=== PATIENT | female | born 1980 | race African-American/Black ===

== ENCOUNTER 2017-10-23 22:12 | Emergency (ER) | payer SELFPAY, OTHER ==
[2017-10-23] MEDS: diphenhydrAMINE HCL 25 MG CAPSULE PO (22:53)
[2017-10-23] MEDS: predniSONE 20 MG TABLET PO (22:53)
[2017-10-23] MEDS: HYDROcodone/APAP 5/325MG 1 TAB TABLET PO (22:53)
[2017-10-23] MEDS: METOCLOPRAMIDE 10 MG TABLET. PO (22:53)
== END 2017-10-23 23:43 | disposition home or self-care (01) ==
LOC: ER 22:12
DX: G43.909 Migraine, unspecified, not intractable, without status migrainosus (principal)
CPT/HCPCS: 70450; 99284-25; J7512; J8597; Q0163

== ENCOUNTER 2018-08-19 18:44 | Emergency (ER) | payer OTHER ==
[~2018-08-19] VITALS: Ht 152.4 cm; Wt 49.9 kg
[~2018-08-19 18:44] MED LIST: TRAM50TA PO
[2018-08-19 19:49] LABS: BILIRUBIN,URINE NEGATIVE (NEG); CLARITY,URINE CLEAR; COLOR,URINE YELLOW; NITRITE,URINE NEGATIVE (NEG); PROTEIN,URINE NEGATIVE (NEG-TRACE); UROBILINOGEN,URINE 0.2 mg/dL (0.2 mg/dL)
[2018-08-19 19:55] LABS: U PREG PATIENT NEGATIVE (NEG)
[2018-08-19 20:08] LABS: BACTERIA,URINE 0 /HPF (0-FEW); RBC,URINE 0 /HPF (0-2); SQUAMOUS EPITHELIAL CELL,UR FEW /LPF; WBC,URINE OCC /HPF (0-4)
[2018-08-19] MEDS ORDERED: IPRATRPIUM/ALBUTEROL 0.5/2.5MG 3 ML NEBU. NEB ONE (20:15)
[2018-08-19] MEDS ORDERED: predniSONE 20 MG TABLET PO ONE (20:15)
[2018-08-19 20:46] LABS: INFLUENZA A PATIENT NEGATIVE (NEGATIVE); INFLUENZA B PATIENT NEGATIVE (NEGATIVE)
[2018-08-19] MEDS ORDERED: AZIT250T6 PO (21:13)
[2018-08-19] MEDS ORDERED: PRED50TA PO (21:13)
--- NOTE | 2018-08-19 21:13 | PHYS DOC ---
Past Medical History Past Medical History: Migraines Past Surgical History: Tubal ligation Alcohol Use: None Drug Use: None Adult General Chief Complaint Chief Complaint: SHORTNESS OF BREATH HPI HPI Patient is a 37 year old female who presents with mid chest pain, shortness of air, cough, nausea, cough with production of yellow brown mucus since . Patient states she does smoke. Her heart rate is 80, 21 respirations and 99% on room air. Patient is afebrile. Patient denies abdominal pain or urinary symptoms. Patient denies nausea, vomiting, diarrhea. Patient states she has no medical history no surgical history takes no medications daily. She has no known drug allergies. Review of Systems Review of Systems Constitutional: Fever or chills [] Eyes: Denies change in visual acuity, redness, or eye pain [] HENT: Denies nasal congestion or sore throat [] Respiratory: Cough and Shortness of breath [] Cardiovascular: Mid chest pain GI: Denies abdominal pain. Nausea. Denies vomiting, bloody stools or diarrhea [] : Denies dysuria or hematuria [] Musculoskeletal: Denies back pain or joint pain [] Integument: Denies rash or skin lesions [] Neurologic: Denies headache, focal weakness or sensory changes [] Endocrine: Denies polyuria or polydipsia [] All other systems were reviewed and found to be within normal limits, except as documented in this note. Current Medications Current Medications Current Medications Medications (Trade) Dose Ordered Sig/Maged Start Time Stop Time Status Last Admin Dose Admin Albuterol/ Ipratropium (Duoneb) 3 ml 1X ONCE 08/19/18 20:15 08/19/18 20:16 DC 08/19/18 19:45 3 ML Prednisone (Prednisone) 50 mg 1X ONCE 08/19/18 20:15 08/19/18 20:16 DC 08/19/18 20:28 50 MG Allergies Allergies Allergies Coded Allergies Type Severity Reaction Last Updated Verified No Known Drug Allergies 10/23/17 No Physical Exam Physical Exam Constitutional: Well developed, well nourished, no acute distress, non-toxic appearance. [] HENT: Normocephalic, atraumatic, bilateral external ears normal, oropharynx moist, no oral exudates, nose normal. [] Eyes: PERRLA, EOMI, conjunctiva normal, no discharge. [] Neck: Normal range of motion, no tenderness, supple, no stridor. [] Cardiovascular:Heart rate regular rhythm, no murmur [] Lungs & Thorax: Bilateral upper breath sounds clear to auscultation, lower breath sounds diminished.[] Abdomen: Bowel sounds normal, soft, no tenderness, no masses, no pulsatile masses. [] Skin: Warm, dry, no erythema, no rash. [] Back: No tenderness, no CVA tenderness. [] Extremities: No tenderness, no cyanosis, no clubbing, ROM intact, no edema. [] Neurologic: Alert and oriented X 3, normal motor function, normal sensory function, no focal deficits noted. [] Psychologic: Affect normal, judgement normal, mood normal. [] Current Patient Data Vital Signs Vital Signs Date Time Temp Pulse Resp B/P (MAP) Pulse Ox O2 Delivery O2 Flow Rate FiO2 08/19/18 21:47 82 16 119/57 (77) 98 Room Air 08/19/18 19:25 98.0 98.0 Lab Values Laboratory Tests Test 08/19/18 19:25 08/19/18 20:21 Urine Collection Type Void Urine Color Yellow Urine Clarity Clear Urine pH 6.0 Urine Specific [place] 1.020 Urine Protein Negative mg/dL (NEG-TRACE) Urine Glucose (UA) Negative mg/dL (NEG) Urine Ketones (Stick) 15 mg/dL (NEG) Urine Blood Negative (NEG) Urine Nitrite Negative (NEG) Urine Bilirubin Negative (NEG) Urine Urobilinogen Dipstick 0.2 mg/dL (0.2 mg/dL) Urine Leukocyte Esterase Trace (NEG) Urine RBC 0 /HPF (0-2) Urine WBC Occ /HPF (0-4) Urine Squamous Epithelial Cells Few /LPF Urine Bacteria 0 /HPF (0-FEW) Urine Mucus Marked /LPF Urine Test Negative (NEG) Influenza Type A Antigen Negative (NEGATIVE) Influenza Type B Antigen Negative (NEGATIVE) EKG EKG [] Radiology/Procedures Radiology/Procedures CHEST XRAY Impressions: COMMUNITY ACQUIRED PNEUMONIA Course & Med Decision Making Course & Med Decision Making Patient is a 37 year old female who presents with mid chest pain, shortness of air, cough, nausea, cough with production of yellow brown mucus since . Patient states she does smoke. Her heart rate is 80, 21 respirations and 99% on room air. Patient is afebrile. Patient denies abdominal pain or urinary symptoms. Patient denies nausea, vomiting, diarrhea. Patient states she has no medical history no surgical history takes no medications daily. She has no known drug allergies. Bilateral lung lobes are clear to auscultation but lower lung lobes are diminished. Heart rate regular without murmur. Abdomen is soft and nontender. Patient speaks in full clear sentences. She denies any numbness or tingling. She has no known drug allergies. Chest x-ray shows clearing acquired pneumonia. Flu negative. Patient was given a breathing treatment and prednisone in the ED. Patient is sent home with azithromycin and prednisone. Patient's follow-up with her primary care provider. [] Dragon Disclaimer Dragon Disclaimer This electronic medical record was generated, in whole or in part, using a voice recognition dictation system. Departure Departure Impression: Primary Impression: Community acquired pneumonia Disposition: HOME, SELF-CARE Condition: STABLE Referrals: NO PCP (PCP) Patient Instructions: Pneumonia, Adult Additional Instructions: FOLLOW UP WITH PRIMARY CARE. TAKE MEDICATIONS PRESCRIBED. Scripts Prednisone (PREDNISONE) 50 Mg Tablet 1 TAB PO DAILY, #4 TAB Prov: MIKKI GOODMAN CHILD DEVELOPMENT ASSISTANT 08/19/18 Azithromycin (AZITHROMYCIN TABLET) 250 Mg Tablet 1 PKG PO UD, #6 TAB Prov: MIKKI GOODMAN CHILD DEVELOPMENT ASSISTANT 08/19/18 Problem Qualifiers Primary Impression: Community acquired pneumonia Laterality: unspecified laterality Qualified Codes: J18.9 - Pneumonia, unspecified organism MIKKI GOODMAN CHILD DEVELOPMENT ASSISTANT Aug 19, 2018 21:13
[2018-08-19 21:47] VITALS: BP 119/57
--- NOTE | 2018-08-19 23:31 | RAD ---
Indication:COUGH, NAUSEA X5 DAYS. RECENT CHEST PAIN SINCE TODAY TECHNIQUE:PA and lateral views of the chest COMPARISON: None FINDINGS: Heart is normal in size. Lungs are hyperinflated but clear of focal consolidation. No pneumothorax or pleural effusion. Stable calcified granuloma in the left lower lobe. Visualized bony thorax within normal limits. IMPRESSION: No acute pulmonary process. Electronically signed by: Justin Stafford DO (08/19/2018 11:28 PM) [facility]
--- NOTE | 2018-08-20 07:23 | EKG ---
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
== END 2018-08-19 21:53 | disposition home or self-care (01) ==
LOC: ER 18:44
DX: J18.9 Pneumonia, unspecified organism (principal)
CPT/HCPCS: 71046; 81001; 81025; 87086; 87804; 93005; 94640; 99285; J7512; J7620

== ENCOUNTER 2020-05-25 11:19 | Emergency (ER) | payer OTHER ==
[~2020-05-25] VITALS: Ht 152.4 cm; Wt 47.0 kg
[~2020-05-25 11:19] MED LIST changes: +AZIT250T6 PO; +PRED50TA PO
[2020-05-25] MEDS ORDERED: KETOROLAC 15 MG/ML VIAL. IVP ONE (12:30)
[2020-05-25] MEDS ORDERED: METOCLOPRAMIDE HCL 10 MG/2 ML VIAL. IVP ONE (12:30)
[2020-05-25] MEDS ORDERED: diphenhydrAMINE 50 MG/ML VIAL IVP ONE (12:30)
--- NOTE | 2020-05-25 12:39 | PHYS DOC ---
Past Medical History Past Medical History: Migraines Past Surgical History: Tubal ligation Smoking Status: Current Every Day Smoker Alcohol Use: None Drug Use: None General Adult EDM: Chief Complaint: HEADACHE HPI: HPI: Patient is a 39 year old female with a history of headaches presents with a 3- day history of her typical headache pattern. Pain is frontal severe in nature worse with light worse with noise patient has nausea no vomiting or diarrhea. Pain is throbbing feels like prior headaches. Patient denies fever, cough, vomiting or respiratory symptoms. Review of Systems: Review of Systems: Constitutional: Denies fever or chills. [] Eyes: Denies change in visual acuity. [] HENT: Denies nasal congestion or sore throat. [] Respiratory: Denies cough or shortness of breath. [] Cardiovascular: Denies chest pain or edema. [] GI: Denies abdominal pain, nausea, vomiting, bloody stools or diarrhea. [] : Denies dysuria. [] Musculoskeletal: Denies back pain or joint pain. [] Integument: Denies rash. [] Neurologic: Complains of headache but no focal weakness or sensory changes. [] Endocrine: Denies polyuria or polydipsia. [] Lymphatic: Denies swollen glands. [] Psychiatric: Denies depression or anxiety. [] Heart Score: Risk Factors: Risk Factors: DM, Current or recent (<one month) smoker, HTN, HLP, family history of CAD, obesity. Risk Scores: Score 0 - 3: 2.5% MACE over next 6 weeks - Discharge Home Score 4 - 6: 20.3% MACE over next 6 weeks - Admit for Clinical Observation Score 7 - 10: 72.7% MACE over next 6 weeks - Early Invasive Strategies Current Medications: Current Medications Medications (Trade) Dose Ordered Sig/Maged Start Time Stop Time Status Last Admin Dose Admin Diphenhydramine HCl (Benadryl) 25 mg 1X ONCE 05/25/20 12:30 05/25/20 12:31 DC Ketorolac Tromethamine (Toradol 15mg Vial) 15 mg 1X ONCE 05/25/20 12:30 05/25/20 12:31 DC Lorazepam (Ativan Inj) 1 mg 1X ONCE 05/25/20 12:30 05/25/20 12:31 DC Metoclopramide HCl (Reglan Vial) 10 mg 1X ONCE 05/25/20 12:30 05/25/20 12:31 DC Allergies: Allergies: Allergies Coded Allergies Type Severity Reaction Last Updated Verified No Known Drug Allergies 10/23/17 No Physical Exam: PE: Constitutional: Well developed, well nourished, no acute distress, non-toxic appearance. HENT: No trismus, external ears normal Eyes: Conjunctiva clear, EOMI Neck: Normal range of motion, no tenderness, supple, no stridor. No meningeal signs Cardiovascular: Regular rate/rhythm, peripheral pulse intact, BILINGUAL NANNY intact Lungs & Thorax: No respiratory distress Abdomen: No distension Skin: Diffuse: Intact, no rash Back: Full ROM Extremities: Normal inspection, no edema Neurologic: Alert and oriented X 3, normal motor function, , no focal deficits noted. Psychologic: Affect normal, judgement normal, mood normal. Current Patient Data: Labs: Laboratory Tests Test 05/25/20 12:13 Bedside Urine HCG, Qualitative Hcg negative Current Medications Medications (Trade) Dose Ordered Sig/Maged Route PRN Reason Start Time Stop Time Status Last Admin Dose Admin Metoclopramide HCl (Reglan Vial) 10 mg 1X ONCE IVP 05/25/20 12:30 05/25/20 12:31 DC 05/25/20 13:45 Ketorolac Tromethamine (Toradol 15mg Vial) 15 mg 1X ONCE IVP 05/25/20 12:30 05/25/20 12:31 DC 05/25/20 13:47 Lorazepam (Ativan Inj) 1 mg 1X ONCE IVP 05/25/20 12:30 05/25/20 12:31 DC 05/25/20 13:49 Diphenhydramine HCl (Benadryl) 25 mg 1X ONCE IVP 05/25/20 12:30 05/25/20 12:31 DC 05/25/20 13:48 Dexamethasone Sodium Phosphate (Decadron) 10 mg 1X ONCE IVP 05/25/20 14:45 05/25/20 14:46 DC 05/25/20 14:58 Laboratory Tests Test 05/25/20 12:13 POC Urine HCG, Qualitative Hcg negative (Negative) Vital Signs: Vital Signs Date Time Temp Pulse Resp B/P (MAP) Pulse Ox O2 Delivery O2 Flow Rate FiO2 05/25/20 12:02 98.7 80 16 128/59 (82) 100 Room Air 98.7 Vital Signs Date Time Temp Pulse Resp B/P (MAP) Pulse Ox O2 Delivery O2 Flow Rate FiO2 05/25/20 14:55 76 16 100 05/25/20 12:02 98.7 128/59 (82) Room Air 98.7 EKG: EKG: [] Radiology/Procedures: Radiology/Procedures: [] Course & Med Decision Making: Course & Med Decision Making Pertinent Labs and Imaging studies reviewed. (See chart for details) [] Reassessed at 2:40 PM. Patient states her pain is much better. Resting comfortably. Patient stable for discharge and outpatient follow-up. Patient signs and symptoms are consistent with her chronic headaches and she has no meningeal signs and a normal neurological exam. Doubt intracranial hemorrhage. Lidiaon Disclaimer: Emir Disclaimer: This electronic medical record was generated, in whole or in part, using a voice recognition dictation system. Departure Departure Impression: Primary Impression: Headache Disposition: 01 HOME, SELF-CARE Condition: STABLE Referrals: UNKNOWN PCP NAME (PCP) pcp 2-3 days Patient Instructions: General Headache Without Cause Additional Instructions: EMERGENCY DEPARTMENT GENERAL DISCHARGE INSTRUCTIONS THANK YOU for coming to [facility] Emergency Department (ED) today and trusting us with your care. We trust that you had a positive experience in our Emergency Department. If you wish to speak to the department Management you can contact the supervisor cutting department at . YOUR FOLLOW UP INSTRUCTIONS ARE FOLLOWS: Do you have a private doctor? If you do not have a private doctor, please ask for a resource list of physicians or clinics that may be able to assist you with follow up care. The Emergency Physician has interpreted your x-rays. The X-ray specialist will also review them. If there is a change in the findings you will be notified in 48 hours when at all possible. A lab test or lab culture may have been done, your results will be reviewed and you will be notified if you need a change in treatment. ADDITIONAL INSTRUCTIONS AND INFORMATION Your care today has been supervised by a physician who is specially trained in emergency care. Many problems require more than one evaluation for a complete diagnosis and treatment. We recommend that you schedule your follow up appointment as recommended to ensure complete treatment of your illness or injury. If you are unable to obtain follow up care and continue to have a problem, or if your condition worsens we recommend that you return to the ED. We are not able to safely determine your condition over the phone nor are we able to give sound medical advice over the phone. For these safety reasons, if you call for medical advice we will ask you to come to the ED for further evaluation If you have any questions regarding these discharge instructions please call the ED at . SAFETY INFORMATION In the interest of safety, wellness, and injury prevention; we encourage you to wear your seatbelt, if you smoke; quit smoking, and we encourage your family to use protective helmet for bicycling and other sporting events that present an increased risk for head injury. IF YOUR SYMPTOMS WORSEN OR NEW SYMPTOMS DEVELOP, OR YOU HAVE CONCERNS ABOUT YOUR CONDITION; OR IF YOUR CONDITION WORSENS WHILE YOU ARE WAITING FOR YOUR FOLLOW UP APPOINTMENT; EITHER CONTACT YOUR PRIMARY CARE DOCTOR, THE PHYSICIAN WHOSE NAME AND NUMBER YOU WERE GIVEN, OR RETURN TO THE ED IMMEDIATELY. Justicifation of Admission Dx: Justifications for Admission: Justification of Admission Dx: N/A GURINDER MENDOZA MD May 25, 2020 12:39
[2020-05-25] MEDS ORDERED: DEXAMETHASONE SOD PHOS 4 MG/ML VIAL IVP ONE (14:45)
[2020-05-25 14:55] VITALS: BP 110/53
== END 2020-05-25 15:02 | disposition home or self-care (01) ==
LOC: ER 11:19
DX: G43.909 Migraine, unspecified, not intractable, without status migrainosus (principal); R11.0 Nausea; F17.200 Nicotine dependence, unspecified, uncomplicated; Z98.51 Tubal ligation status
CPT/HCPCS: 81025; 96374; 96375; 99284; J1100; J1200; J1885; J2060; J2765

== ENCOUNTER 2020-06-05 09:56 | Emergency (ER) | payer OTHER ==
[~2020-06-05] VITALS: Ht 152.4 cm; Wt 52.0 kg
[2020-06-05 10:30] VITALS: BP 124/60
[2020-06-05] MEDS ORDERED: diazePAM 5 MG TABLET PO ONE (11:00)
[2020-06-05] MEDS ORDERED: KETOROLAC 30 MG/ML VIAL. IM ONE (11:00)
--- NOTE | 2020-06-05 11:17 | PHYS DOC ---
Past Medical History Past Medical History: No Pertinent History, Migraines Past Surgical History: Tubal ligation Smoking Status: Former Smoker Alcohol Use: None Drug Use: None General Adult EDM: Chief Complaint: BACK PAIN OR INJURY HPI: HPI: Patient is a 39 year old female with a 1 day history of right-sided neck and upper back pain that began at work. Patient works at [employer] does a lot of twisting and lifting with her neck. Patient describes severe sharp stabbing neck pain that radiates to the right arm. Patient denies any focal weakness or numbness. Pain is worse with palpation and movement. Patient denies any shortness of breath. No fevers no cough no vomiting or diarrhea. Review of Systems: Review of Systems: Constitutional: Denies fever or chills. [] Eyes: Denies change in visual acuity. [] HENT: Denies nasal congestion or sore throat. [] Respiratory: Denies cough or shortness of breath. [] Cardiovascular: Denies chest pain or edema. [] GI: Denies abdominal pain, nausea, vomiting, bloody stools or diarrhea. [] : Denies dysuria. [] Musculoskeletal: Complains of neck and upper back pain Integument: Denies rash. [] Neurologic: Denies headache, focal weakness or sensory changes. [] Endocrine: Denies polyuria or polydipsia. [] Lymphatic: Denies swollen glands. [] Psychiatric: Denies depression or anxiety. [] Heart Score: Risk Factors: Risk Factors: DM, Current or recent (<one month) smoker, HTN, HLP, family history of CAD, obesity. Risk Scores: Score 0 - 3: 2.5% MACE over next 6 weeks - Discharge Home Score 4 - 6: 20.3% MACE over next 6 weeks - Admit for Clinical Observation Score 7 - 10: 72.7% MACE over next 6 weeks - Early Invasive Strategies Current Medications: Current Medications Medications (Trade) Dose Ordered Sig/Maged Start Time Stop Time Status Last Admin Dose Admin Diazepam (Valium) 5 mg 1X ONCE 06/05/20 11:00 06/05/20 11:01 DC 06/05/20 11:08 5 MG Ketorolac Tromethamine (Toradol 30mg Vial) 30 mg 1X ONCE 06/05/20 11:00 06/05/20 11:01 DC 06/05/20 11:07 30 MG Allergies: Allergies: Allergies Coded Allergies Type Severity Reaction Last Updated Verified No Known Drug Allergies 10/23/17 No Physical Exam: PE: Constitutional: Well developed, well nourished, no acute distress, non-toxic appearance. [] HENT: Normocephalic, atraumatic, bilateral external ears normal, no trismus, nose normal. [] Eyes: PERRLA, EOMI, conjunctiva normal, no discharge. [] Neck: Tender to palpate on the right trapezius with limited range of motion due to pain Cardiovascular:Heart rate regular rhythm, peripheral pulses intact, cap refill brisk Lungs & Thorax: Bilateral breath sounds clear no respiratory distress Abdomen: Nondistended Skin: Warm, dry, no erythema, no rash. [] Back: Tender to palpate right upper trapezius area Extremities: No tenderness, no cyanosis, no clubbing, ROM intact, no edema. [] Neurologic: Alert and oriented X 3, normal motor function, normal sensory function, no focal deficits noted. [] Psychologic: Affect normal, judgement normal, mood normal. [] Current Patient Data: Labs: Laboratory Tests Test 06/05/20 10:32 POC Urine HCG, Qualitative Hcg negative (Negative) Vital Signs: Vital Signs Date Time Temp Pulse Resp B/P (MAP) Pulse Ox O2 Delivery O2 Flow Rate FiO2 06/05/20 10:30 97.4 88 16 124/60 (81) 100 Room Air 97.4 EKG: EKG: [] Radiology/Procedures: Radiology/Procedures: [] Course & Med Decision Making: Course & Med Decision Making Pertinent Labs and Imaging studies reviewed. (See chart for details) [] Patient clinically improved on reassessment. No neurological deficits. No risk factors for epidural abscess. Most likely patient has a right trapezius strain. Patient will be placed on symptomatic treatment. Upon reassessment patient is clinically improved. Dragon Disclaimer: Dragcaleb Disclaimer: This electronic medical record was generated, in whole or in part, using a voice recognition dictation system. Departure Departure Impression: Primary Impression: Strain of right trapezius muscle Disposition: HOME, SELF-CARE Condition: STABLE Referrals: UNKNOWN PCP NAME (PCP) COTY CARTER MD 3 DAYS Patient Instructions: Soft Tissue Injury of the Neck Additional Instructions: EMERGENCY DEPARTMENT GENERAL DISCHARGE INSTRUCTIONS THANK YOU for coming to [facility] Emergency Department (ED) today and trusting us with your care. We trust that you had a positive experience in our Emergency Department. If you wish to speak to the department Management you can contact the veneer department manager at . YOUR FOLLOW UP INSTRUCTIONS ARE FOLLOWS: Do you have a private doctor? If you do not have a private doctor, please ask for a resource list of physicians or clinics that may be able to assist you with follow up c are. The Emergency Physician has interpreted your x-rays. The X-ray specialist will also review them. If there is a change in the findings you will be notified in 48 hours when at all possible. A lab test or lab culture may have been done, your results will be reviewed and you will be notified if you need a change in treatment. ADDITIONAL INSTRUCTIONS AND INFORMATION Your care today has been supervised by a physician who is specially trained in emergency care. Many problems require more than one evaluation for a complete diagnosis and treatment. We recommend that you schedule your follow up appointment as recommended to ensure complete treatment of your illness or injury. If you are unable to obtain follow up care and continue to have a problem, or if your condition worsens we recommend that you return to the ED. We are not able to safely determine your condition over the phone nor are we able to give sound medical advice over the phone. For these safety reasons, if you call for medical advice we will ask you to come to the ED for further evaluation If you have any questions regarding these discharge instructions please call the ED at . SAFETY INFORMATION In the interest of safety, wellness, and injury prevention; we encourage you to wear your seatbelt, if you smoke; quit smoking, and we encourage your family to use protective helmet for bicycling and other sporting events that present an increased risk for head injury. IF YOUR SYMPTOMS WORSEN OR NEW SYMPTOMS DEVELOP, OR YOU HAVE CONCERNS ABOUT YOUR CONDITION; OR IF YOUR CONDITION WORSENS WHILE YOU ARE WAITING FOR YOUR FOLLOW UP APPOINTMENT; EITHER CONTACT YOUR PRIMARY CARE DOCTOR, THE PHYSICIAN WHOSE NAME AND NUMBER YOU WERE GIVEN, OR RETURN TO THE ED IMMEDIATELY. Scripts Diazepam (VALIUM) 5 Mg Tablet 5 MG PO TID for SPASM, #15 TAB Prov: GURINDER MENDOZA MD 06/05/20 Ibuprofen (IBUPROFEN) 600 Mg Tablet 600 MG PO PRN Q6HRS PRN for PAIN, #20 TAB take with food or milk Prov: GURINDER MENDOZA MD 06/05/20 Hydrocodone/Apap 5-325 (NORCO 5-325 TABLET) 1 Each Tablet 1-2 EACH PO PRN Q6HRS PRN for PAIN, #15 as needed for pain Prov: GURINDER MENDOZA MD 06/05/20 Justicifation of Admission Dx: Justifications for Admission: Justification of Admission Dx: N/A GURINDER MENDOZA MD Jun 05, 2020 11:17
[2020-06-05] MEDS ORDERED: DIAZ5TAB PO (11:34)
[2020-06-05] MEDS ORDERED: HYDR-3164 PO (11:34)
[2020-06-05] MEDS ORDERED: IBUP-1007 PO (11:34)
== END 2020-06-05 11:45 | disposition home or self-care (01) ==
LOC: ER 09:56
DX: S29.012A Strain of muscle and tendon of back wall of thorax, initial encounter (principal); M54.2 Cervicalgia; G43.909 Migraine, unspecified, not intractable, without status migrainosus; Z87.891 Personal history of nicotine dependence; X50.0XXA Overexertion from strenuous movement or load, initial encounter; Y93.89 Activity, other specified; Y92.89 Other specified places as the place of occurrence of the external cause; Y99.8 Other external cause status
CPT/HCPCS: 81025; 96372; 99283; J1885; 96374; 96376; 99285-25

== ENCOUNTER 2020-06-27 11:40 | Inpatient (IN) | payer OTHER ==
[2020-06-27] VITALS (10 sets, daily range): BP systolic 102–123; BP diastolic 50–60
[~2020-06-27] VITALS: Ht 152.4 cm; Wt 45.0 kg
[~2020-06-27 11:40] MED LIST changes: +DIAZ5TAB PO; +HYDR-3164 PO; +IBUP-1007 PO
--- NOTE | 2020-06-27 12:14 | PHYS DOC ---
Past Medical History Past Medical History: No Pertinent History, Migraines Past Surgical History: Tubal ligation Smoking Status: Former Smoker Alcohol Use: None Drug Use: None General Adult EDM: Chief Complaint: DIZZY/LIGHT HEADED HPI: HPI: Patient is a 39 year old female who presents with 2 days of lightheadedness, dizziness, seeing intermittent aguilar specks in her vision, blurred vision. She denies headache or syncope, nausea, vomiting, fever, neck pain, focal weakness, abdominal pain, chest pain, shortness of air. She has a history of migraines and anxiety. She states that she had been getting back spasms and she was here on June 05 and was given Valium. She states that she does not take the Valium daily only as needed for back spasms. She denies any pain at this time. Nothing makes her symptoms worse or better. Review of Systems: Review of Systems: Constitutional: Denies fever or chills. [] Eyes: Denies change in visual acuity. Seeing intermittent aguilar specks in her vision and blurred vision. [] HENT: Denies nasal congestion or sore throat. [] Respiratory: Denies cough or shortness of breath. [] Cardiovascular: Denies chest pain or edema. [] GI: Denies abdominal pain, nausea, vomiting, bloody stools or diarrhea. [] : Denies dysuria. [] Musculoskeletal: Denies back pain or joint pain. [] Integument: Denies rash. [] Neurologic: Denies headache, focal weakness or sensory changes. Dizziness. [] Endocrine: Denies polyuria or polydipsia. [] Lymphatic: Denies swollen glands. [] Psychiatric: Denies depression or anxiety. [] Heart Score: Risk Factors: Risk Factors: DM, Current or recent (<one month) smoker, HTN, HLP, family history of CAD, obesity. Risk Scores: Score 0 - 3: 2.5% MACE over next 6 weeks - Discharge Home Score 4 - 6: 20.3% MACE over next 6 weeks - Admit for Clinical Observation Score 7 - 10: 72.7% MACE over next 6 weeks - Early Invasive Strategies Allergies: Allergies: Allergies Coded Allergies Type Severity Reaction Last Updated Verified No Known Drug Allergies 10/23/17 No Physical Exam: PE: Constitutional: Well developed, well nourished, no acute distress, non-toxic appearance. [] HENT: Normocephalic, atraumatic, bilateral external ears normal, oropharynx moist, no oral exudates, nose normal. [] Eyes: PERRLA, EOMI, conjunctiva normal, no discharge. [] Neck: Normal range of motion, no tenderness, supple, no stridor. [] Cardiovascular:Heart rate regular rhythm, no murmur [] Lungs & Thorax: Bilateral breath sounds clear to auscultation [] Abdomen: Bowel sounds normal, soft, no tenderness, no masses, no pulsatile masses. [] Skin: Warm, dry, no erythema, no rash. [] Back: No tenderness, no CVA tenderness. [] Extremities: No tenderness, no cyanosis, no clubbing, ROM intact, no edema. [] Neurologic: Alert and oriented X 3, normal motor function, normal sensory function, no focal deficits noted. [] Psychologic: Affect normal, judgement normal, mood normal. Normal Physical Exam[] EKG: EK and read by Dr Stallings as NSR and no STEMI[] Radiology/Procedures: Radiology/Procedures: [] Impression: [address] [address] IMAGING REPORT Signed PATIENT: JENNIFER TORREZ ACCOUNT: [id number] : 03/17/1950 LOCATION: ER AGE: 70 SEX: M EXAM STATUS: PRE ER ORD. PHYSICIAN: MIKKI GOODMAN APRN REASON: cough, soa PROCEDURE: PORTABLE CHEST 1V PORTABLE CHEST 1V INDICATION: cough, soa . COMPARISON STUDY: None. FINDINGS: Lungs: Normal lung volume. No pulmonary mass or consolidation. The tracheobronchial tree and hilar structures are normal. Pleura: No pleural effusion or pneumothorax. Heart and Mediastinum: The cardiomediastinal silhouette is normal. The great vessels of the thorax are normal. IMPRESSION: No acute cardiopulmonary process. Electronically signed by: Denise Henriquez MD (06/27/2020 12:00 PM) [id number] DICTATED and SIGNED BY: DNEISE HENRIQUEZ MD DATE: 06/27/[address] [place] [address] IMAGING REPORT Signed PATIENT: FORTUNATO BANKS ACCOUNT: [id number] : 1980 LOCATION: [address] [place] [address] AGE: 39 SEX: F EXAM STATUS: ADM IN ORD. PHYSICIAN: MIKKI GOODMAN APRN REASON: HEAVY VAGINAL BLEEDING; ANEMIC; ? FIBROIDS PROCEDURE: PELVIS COMPLETE Examination: Ultrasound pelvis HISTORY: History of heavy vaginal bleeding COMPARISON: None available FINDINGS: The uterus measures 10.6 x 8.9 x 6.5 cm. The endometrium measures 4.2 mm in thickness. There are heterogeneous echogenicities identified in the uterus measuring 3.0 cm, 2.7 cm and 3.1 cm likely fibroids. The right and left ovaries could not be visualized. Impression: 1. Fibroid uterus. 2. Right and left ovaries could not be identified. Electronically signed by: Lino Gallardo MD (06/27/2020 2:18 PM) [id number] DICTATED and SIGNED BY: LINO GALLARDO MD DATE: 06/27/20 1418 Course & Med Decision Making: Course & Med Decision Making Pertinent Labs and Imaging studies reviewed. (See chart for details) Alert and oriented x4. Ambulatory with a steady gait. Speaks in full clear sentences. Skin pink warm and dry. Vital signs within normal limits. PERRLA. Moves all extremities equally and with equal strengths. Patient states that she feels like she is had to have anxiety or panic attack. Patient states that she does have very heavy periods for the last 6 months. She states that she has to wear a tampon and a pad at the same time and change them every hour. States these periods last for 7 days at a time. She states she is she is not on currently any kind of controls. She is currently on her period. Patient's hemoglobin is at a 4. I have ordered 2 units of packed red blood cells for her. Also get a ultrasound of her pelvis. She states she is not sure of why she is been having these heavy periods and has not been checked out for in the past. Patient states she is currently on the seventh day of her menses. She states the bleeding has lessened. LAVERNE Rojas is in the room with Dr. Florez and patient states to him that she has been diagnosed with anemia in the past and was told to take iron pills but has not been taking them. She denied anemia to nurse and myself at the beginning of the exam. I have spoken to Dr Florez for admission. I will consult Gynecology. I have Spoken to Dr. Enrique and he stated that the patient needs to be on Premarin 25mg IV every 6 x4 doses. I have called pharmacy to make sure this is correctly ordered. Pelvic Exam: Traveler Changer present Abdomen: Nontender External Genitalia: Normal Skin Speculum: Normal vaginal mucosa, Light cervical bleeding Bimanual: No adnexal masses or tenderness, No CMT [] Dragon Disclaimer: Dragon Disclaimer: This electronic medical record was generated, in whole or in part, using a voice recognition dictation system. NIHSS Stroke Scale NIH Stroke Scale: NIH Stroke Scale Response (Comments) Value Level of Consciousness: 0 Alert/Responsive 0 LOC Questions: 0 Answers both correctly 0 LOC Commands: 0 Performs both tasks 0 Best Gaze: 0 Normal 0 Visual: 0 No visual loss 0 Facial Palsy: 0 Normal, symmetrical 0 Motor - Left Arm 0 No drift 0 Motor - Right Arm 0 No drift 0 Motor - Left Leg 0 No drift 0 Motor: Right Leg 0 No drift 0 Limb Ataxia: 0 Absent 0 Sensory: 0 No loss 0 Best Language: 0 Normal 0 Dysathria: 0 Normal 0 Extinction and Inattention: 0 Normal 0 Total 0 Departure Departure Impression: Primary Impression: Low hemoglobin Disposition: ADMITTED INPATIENT Admitting Physician: HIMS Condition: STABLE Referrals: NO PCP (PCP) Justicifation of Admission Dx: Justifications for Admission: Justification of Admission Dx: Yes Comments: LOW HEMOGLOBIN MIKKI GOODMAN APRN Jun 27, 2020 12:14
[2020-06-27] MEDS ORDERED: diazePAM 5 MG TABLET PO ONE (12:15)
[2020-06-27 12:30] LABS: BASO # 0.1 x10^3/uL (0.0-0.2); BASO % 1 % (0-3); EOS % 0 % (0-3); LYMPH # 2.2 x10^3/uL (1.0-4.8); LYMPH % 19 % (24-48); MEAN CORPUSCULAR HEMOGLOBIN 13 pg (25-35); MEAN CORPUSCULAR HGB CONC 25 g/dL (31-37); MEAN CORPUSCULAR VOLUME 50 fL (79-100); MONO # 0.5 x10^3/uL (0.0-1.1); MONO % 4 % (0-9); NEUT # 8.5 x10^3/uL (1.8-7.7); NEUT % 76 % (31-73); PLATELET COUNT 392 x10^3/uL (140-400); RED BLOOD COUNT 3.18 x10^6/uL (3.50-5.40); RED CELL DISTRIBUTION WIDTH 26.4 % (11.5-14.5); WHITE BLOOD COUNT 11.2 x10^3/uL (4.0-11.0)
[2020-06-27 12:31] LABS: CREATININE 0.4 mg/dL (0.6-1.0); POTASSIUM 3.4 mmol/L (3.5-5.1)
[2020-06-27 12:37] LABS: PROTHROMBIN TIME PATIENT 14.4 SEC (11.7-14.0)
[2020-06-27 12:38] LABS: ALBUMIN 3.8 g/dL (3.4-5.0); ALBUMIN/GLOBULIN RATIO 1.1 (1.0-1.7); TOTAL BILIRUBIN 0.1 mg/dL (0.2-1.0); TOTAL PROTEIN 7.3 g/dL (6.4-8.2)
[2020-06-27] MEDS ORDERED: IV NORMAL SALINE 1000ML BAG 1,000 ML IV ONE (12:45)
[2020-06-27 12:48] LABS: BILIRUBIN,URINE NEGATIVE (NEG); CLARITY,URINE CLEAR; COLOR,URINE YELLOW; NITRITE,URINE NEGATIVE (NEG); PROTEIN,URINE NEGATIVE (NEG-TRACE); UROBILINOGEN,URINE 0.2 mg/dL (0.2 mg/dL)
[2020-06-27 12:59] LABS: BARBITURATES NEG (NEG); BENZODIAZEPINES POS (NEG); CANNABINOIDS POS (NEG); COCAINE NEG (NEG); METHADONE NEG (NEG); OPIATES NEG (NEG); PHENCYCLIDINE NEG (NEG)
[2020-06-27 13:00] LABS: SQUAMOUS EPITHELIAL CELL,UR MOD /LPF
[2020-06-27 13:01] LABS: BACTERIA,URINE FEW /HPF (0-FEW)
[2020-06-27 13:05] LABS: AMPHETAMINE/METHAMPHETAMINE NEG (NEG)
--- NOTE | 2020-06-27 13:14 | RAD ---
CT HEAD INDICATION: Reason: light headedness, dizziness since yesterday / Spl. Instructions: / History: COMPARISON: None Available. Exposure: One or more of the following individualized dose reduction techniques were utilized for this examination: 1. Automated exposure control 2. Adjustment of the mA and/or kV according to patient size 3. Use of iterative reconstruction technique TECHNIQUE: 5 mm contiguous axial images were obtained from the skull base to the vertex in both bone and soft tissue algorithm. FINDINGS: No abnormal attenuation within the brain parenchyma. No evidence of acute intracranial hemorrhage. No extra-axial fluid collections. No mass effect or midline shift. Ventricular size is appropriate. Basal cisterns are patent. No fractures identified.Arguello-white differentiation is preserved.Globes and orbits are within normal limits. Paranasal sinuses and mastoid air cells are clear. IMPRESSION: No acute intracranial findings. Electronically signed by: Lino Gallardo MD (06/27/2020 1:11 PM) [id number]
[2020-06-27] MEDS ORDERED: ONDANSETRON PF 4 MG/2 ML VIAL. IV PRN (13:45)
[2020-06-27] MEDS ORDERED: ACETAMINOPHEN 325 MG TABLET. PO PRN (13:45)
[2020-06-27 13:59] LABS: HYPOCHROMIA MARKED; PLT ESTIMATE ADEQUATE (ADEQUATE); POIKILOCYTOSIS SLIGHT
[2020-06-27 14:00] LABS: ANISOCYTOSIS MARKED; MICROCYTOSIS MARKED; OVALOCYTES PRESENT
--- NOTE | 2020-06-27 14:21 | RAD ---
Examination: Ultrasound pelvis HISTORY: History of heavy vaginal bleeding COMPARISON: None available FINDINGS: The uterus measures 10.6 x 8.9 x 6.5 cm. The endometrium measures 4.2 mm in thickness. There are heterogeneous echogenicities identified in the uterus measuring 3.0 cm, 2.7 cm and 3.1 cm likely fibroids. The right and left ovaries could not be visualized. Impression: 1. Fibroid uterus. 2. Right and left ovaries could not be identified. Electronically signed by: Lino Gallardo MD (06/27/2020 2:18 PM) [id number]
[2020-06-27] MEDS: ESTROGENS, CONJUGATED 25 MG VIAL IV SCH ×2 (14:25→18:30)
[2020-06-27] MEDS: IV NORMAL SALINE 1000ML BAG 1,000 ML IV SCH ×2 (14:29→23:32)
--- NOTE | 2020-06-27 17:30 | PDOC1 ---
History and Physical Date of Service: DOS: DATE: 06/27/20 TIME: 17:23 Chief Complaint: Chief Complain: Dizziness and lightheadedness History of Present Illness: HPI: 39 year old female who presents with 2 days of lightheadedness, dizziness, seeing intermittent aguilar specks in her vision, blurred vision. She denies headache or syncope, nausea, vomiting, fever, neck pain, focal weakness, abdominal pain, chest pain, shortness of air. She has a history of migraines and anxiety. She states that she had been getting back spasms and she was here on June 05 and was given Valium. She states that she does not take the Valium daily only as needed for back spasms. She denies any pain at this time. Nothing makes her symptoms worse or better. Upon further questioning, patient states that she has had a history of anemia and heavy periods for the past 6 months. She is unsure whether she was given iron supplementation from her PCP. She does notice that she has increased appetite for eating ice. Past Medical/Surgical History: PMH/PSH: Past Medical History: No Pertinent History, Migraines Past Surgical History: Tubal ligation Allergies: Allergies: Coded Allergies: No Known Drug Allergies (Unverified , 10/23/17) Family History: Family History: No family history of sickle cell disease or thalassemia Social History: Social History: Smoking Status: Former Smoker Alcohol Use: None Drug Use: None Current Medications: Current Medications Current Medications Diazepam (Valium) 5 mg 1X ONCE PO Last administered on 06/27/20at 12:13; Start 06/27/20 at 12:15; Stop 06/27/20 at 12:16; Status DC Sodium Chloride 1,000 ml @ 1,000 mls/hr 1X ONCE IV Last administered on 06/27/20at 13:31; Start 06/27/20 at 12:45; Stop 06/27/20 at 13:45; Status DC Ondansetron HCl (Zofran) 4 mg PRN Q8HRS PRN IV NAUSEA/VOMITING; Start 06/27/20 at 13:45; Stop 06/28/20 at 13:44 Fentanyl Citrate (Fentanyl 2ml Vial) 50 mcg PRN Q1HR PRN IV PAIN; Start 06/27/20 at 13:45; Stop 06/28/20 at 13:44 Sodium Chloride 1,000 ml @ 100 mls/hr Q10H IV Last administered on 06/27/20at 14:29; Start 06/27/20 at 13:32; Stop 06/28/20 at 13:31 Acetaminophen (Tylenol) 650 mg PRN Q4HRS PRN PO FEVER > 100.3'F; Start 06/27/20 at 13:45; Stop 06/28/20 at 13:44 Estrogens Conjugated (Premarin) 25 mg Q6HRS IV Last administered on 06/27/20at 14:25; Start 06/27/20 at 14:00; Stop 06/28/20 at 06:01 Active Scripts Active Valium (Diazepam) 5 Mg Tablet 5 Mg PO TID Ibuprofen 600 Mg Tablet 600 Mg PO PRN Q6HRS PRN take with food or milk [place] 5-325 Tablet (Acetaminophen/Hydrocodone Bitart) 1 Each Tablet 1-2 Each PO PRN Q6HRS PRN as needed for pain Prednisone 50 Mg Tablet 1 Tab PO DAILY Azithromycin Tablet (Azithromycin) 250 Mg Tablet 1 Pkg PO UD Tramadol Hcl 50 Mg Tablet 1 Tab PO PRN Q6HRS ROS: Review of Systems Review of System REVIEW OF SYSTEMS: GENERAL: Denies weakness SKIN: No bruising, hair changes or rashes. EYES: No blurred, double or loss of vision. NOSE AND THROAT: No history of nosebleeds, hoarseness or sore throat. HEART: No history of palpitations, chest pain or shortness of breath on exertion. LUNGS: Denies cough, hemoptysis, wheezing or shortness of breath. GASTROINTESTINAL: Denies changes in appetite, nausea, vomiting, diarrhea or constipation. GENITOURINARY: No history of frequency, urgency, hesitancy or nocturia. NEUROLOGIC: Denies history of numbness, tingling, or tremor. PSYCHIATRIC: No history of panic, anxiety or depression. ENDOCRINE: No history of heat or cold intolerance, polyuria or polydipsia. EXTREMITIES: Denies joint pain, pain on walking or stiffness. Physical Exam: Vital Signs: Vital Signs Date Time Temp Pulse Resp B/P (MAP) Pulse Ox O2 Delivery O2 Flow Rate FiO2 06/27/20 14:00 81 15 100 06/27/20 11:50 98.9 139/60 (86) Room Air 98.9 Physcial Exam: GEN: No apparent distress. Alert and oriented HEENT: Normal cephalic, atraumatic, external auditory canals are patent EYES: Extraocular muscles are intact, pupil are equally round and reactive to light and accommodation MUSCULOSKELETAL: Well developed , well nourished, good range of motion ENDOCRINE: No thyromegaly was palpated LYMPHATICS: No cervical chain or axillary nodes were noted HEMATOPOIETIC: No bruising NECK: Supple, no JVD, no thyromegaly was noted LUNGS: Clear to auscultation in all lung finley without rhonchi or wheezing HEART: RRR, S!, S2 present. Peripheral pulses intact, no obvious murmurs noted ABDOMEN: Soft, nontender. Positive bowel sounds, no organomegaly, normal bowel sounds EXTREMITIES: Without clubbing, cyanosis, or edema. Pedal pulses intact. Nega tive Homans sign NEUROLOGIC: Normal speech and tone. A&O x 3, moves all extremities, no obvious focal deficits PSYCHIATRIC: Normal affect, normal mood. Stable SKIN: No ulcerations or rashes, good skin turgor, no jaundice VASCULAR: Good capillary refill, neurovascular bundle appears to be intact Labs: Labs: Laboratory Tests Test 06/27/20 12:05 06/27/20 12:07 06/27/20 12:30 06/27/20 12:41 White Blood Count 11.2 x10^3/uL (4.0-11.0) Red Blood Count 3.18 x10^6/uL (3.50-5.40) Hemoglobin 4.0 g/dL (12.0-15.5) Hematocrit 16.0 % (36.0-47.0) Mean Corpuscular Volume 50 fL (79-100) Mean Corpuscular Hemoglobin 13 pg (25-35) Mean Corpuscular Hemoglobin Concent 25 g/dL (31-37) Red Cell Distribution Width 26.4 % (11.5-14.5) Platelet Count 392 x10^3/uL (140-400) Neutrophils (%) (Auto) 76 % (31-73) Lymphocytes (%) (Auto) 19 % (24-48) Monocytes (%) (Auto) 4 % (0-9) Eosinophils (%) (Auto) 0 % (0-3) Basophils (%) (Auto) 1 % (0-3) Neutrophils # (Auto) 8.5 x10^3/uL (1.8-7.7) Lymphocytes # (Auto) 2.2 x10^3/uL (1.0-4.8) Monocytes # (Auto) 0.5 x10^3/uL (0.0-1.1) Eosinophils # (Auto) 0.0 x10^3/uL (0.0-0.7) Basophils # (Auto) 0.1 x10^3/uL (0.0-0.2) Platelet Estimate Adequate (ADEQUATE) Hypochromasia Marked Poikilocytosis Slight Anisocytosis Marked Microcytosis Marked Ovalocytes Present Prothrombin Time 14.4 SEC (11.7-14.0) Prothromb Time International Ratio 1.2 (0.8-1.1) Sodium Level 137 mmol/L (136-145) Potassium Level 3.4 mmol/L (3.5-5.1) Chloride Level 102 mmol/L (98-107) Carbon Dioxide Level 24 mmol/L (21-32) Anion Gap 11 (6-14) Blood Urea Nitrogen 8 mg/dL (7-20) Creatinine 0.4 mg/dL (0.6-1.0) Estimated GFR (Cockcroft-Gault) 215.0 BUN/Creatinine Ratio 20 (6-20) Glucose Level 100 mg/dL (70-99) Calcium Level 9.0 mg/dL (8.5-10.1) Total Bilirubin 0.1 mg/dL (0.2-1.0) Aspartate Amino Transf (AST/SGOT) 13 U/L (15-37) Alanine Aminotransferase (ALT/SGPT) 18 U/L (14-59) Alkaline Phosphatase 52 U/L (46-116) Total Protein 7.3 g/dL (6.4-8.2) Albumin 3.8 g/dL (3.4-5.0) Albumin/Globulin Ratio 1.1 (1.0-1.7) Troponin I Quantitative < 0.017 ng/mL (0.000-0.055) Urine Collection Type Unknown Urine Color Yellow Urine Clarity Clear Urine pH 6.0 (<5.0-8.0) Urine Specific [place] 1.010 (1.000-1.030) Urine Protein Negative mg/dL (NEG-TRACE) Urine Glucose (UA) Negative mg/dL (NEG) Urine Ketones (Stick) Negative mg/dL (NEG) Urine Blood Moderate (NEG) Urine Nitrite Negative (NEG) Urine Bilirubin Negative (NEG) Urine Urobilinogen Dipstick 0.2 mg/dL (0.2 mg/dL) Urine Leukocyte Esterase Negative (NEG) Urine RBC 1-2 /HPF (0-2) Urine WBC 5-10 /HPF (0-4) Urine Squamous Epithelial Cells Mod /LPF Urine Bacteria Few /HPF (0-FEW) Urine Mucus Marked /LPF Urine Opiates Screen Neg (NEG) Urine Methadone Screen Neg (NEG) Urine Barbiturates Neg (NEG) Urine Phencyclidine Screen Neg (NEG) Urine Amphetamine/Methamphetamine Neg (NEG) Urine Benzodiazepines Screen Pos (NEG) Urine Cocaine Screen Neg (NEG) Urine Cannabinoids Screen Pos (NEG) Urine Ethyl Alcohol Neg (NEG) Bedside Urine HCG, Qualitative Hcg negative (Negative) Test 06/27/20 14:45 SARS-CoV-2 Antigen (Rapid) Negative (NEGATIVE) Laboratory Tests Test 06/27/20 12:05 06/27/20 12:07 06/27/20 12:30 06/27/20 12:41 White Blood Count 11.2 x10^3/uL (4.0-11.0) Red Blood Count 3.18 x10^6/uL (3.50-5.40) Hemoglobin 4.0 g/dL (12.0-15.5) Hematocrit 16.0 % (36.0-47.0) Mean Corpuscular Volume 50 fL (79-100) Mean Corpuscular Hemoglobin 13 pg (25-35) Mean Corpuscular Hemoglobin Concent 25 g/dL (31-37) Red Cell Distribution Width 26.4 % (11.5-14.5) Platelet Count 392 x10^3/uL (140-400) Neutrophils (%) (Auto) 76 % (31-73) Lymphocytes (%) (Auto) 19 % (24-48) Monocytes (%) (Auto) 4 % (0-9) Eosinophils (%) (Auto) 0 % (0-3) Basophils (%) (Auto) 1 % (0-3) Neutrophils # (Auto) 8.5 x10^3/uL (1.8-7.7) Lymphocytes # (Auto) 2.2 x10^3/uL (1.0-4.8) Monocytes # (Auto) 0.5 x10^3/uL (0.0-1.1) Eosinophils # (Auto) 0.0 x10^3/uL (0.0-0.7) Basophils # (Auto) 0.1 x10^3/uL (0.0-0.2) Platelet Estimate Adequate (ADEQUATE) Hypochromasia Marked Poikilocytosis Slight Anisocytosis Marked Microcytosis Marked Ovalocytes Present Prothrombin Time 14.4 SEC (11.7-14.0) Prothromb Time International Ratio 1.2 (0.8-1.1) Sodium Level 137 mmol/L (136-145) Potassium Level 3.4 mmol/L (3.5-5.1) Chloride Level 102 mmol/L (98-107) Carbon Dioxide Level 24 mmol/L (21-32) Anion Gap 11 (6-14) Blood Urea Nitrogen 8 mg/dL (7-20) Creatinine 0.4 mg/dL (0.6-1.0) Estimated GFR (Cockcroft-Gault) 215.0 BUN/Creatinine Ratio 20 (6-20) Glucose Level 100 mg/dL (70-99) Calcium Level 9.0 mg/dL (8.5-10.1) Total Bilirubin 0.1 mg/dL (0.2-1.0) Aspartate Amino Transf (AST/SGOT) 13 U/L (15-37) Alanine Aminotransferase (ALT/SGPT) 18 U/L (14-59) Alkaline Phosphatase 52 U/L (46-116) Total Protein 7.3 g/dL (6.4-8.2) Albumin 3.8 g/dL (3.4-5.0) Albumin/Globulin Ratio 1.1 (1.0-1.7) Troponin I Quantitative < 0.017 ng/mL (0.000-0.055) Urine Collection Type Unknown Urine Color Yellow Urine Clarity Clear Urine pH 6.0 (<5.0-8.0) Urine Specific [place] 1.010 (1.000-1.030) Urine Protein Negative mg/dL (NEG-TRACE) Urine Glucose (UA) Negative mg/dL (NEG) Urine Ketones (Stick) Negative mg/dL (NEG) Urine Blood Moderate (NEG) Urine Nitrite Negative (NEG) Urine Bilirubin Negative (NEG) Urine Urobilinogen Dipstick 0.2 mg/dL (0.2 mg/dL) Urine Leukocyte Esterase Negative (NEG) Urine RBC 1-2 /HPF (0-2) Urine WBC 5-10 /HPF (0-4) Urine Squamous Epithelial Cells Mod /LPF Urine Bacteria Few /HPF (0-FEW) Urine Mucus Marked /LPF Urine Opiates Screen Neg (NEG) Urine Methadone Screen Neg (NEG) Urine Barbiturates Neg (NEG) Urine Phencyclidine Screen Neg (NEG) Urine Amphetamine/Methamphetamine Neg (NEG) Urine Benzodiazepines Screen Pos (NEG) Urine Cocaine Screen Neg (NEG) Urine Cannabinoids Screen Pos (NEG) Urine Ethyl Alcohol Neg (NEG) Bedside Urine HCG, Qualitative Hcg negative (Negative) Test 06/27/20 14:45 SARS-CoV-2 Antigen (Rapid) Negative (NEGATIVE) Images: Images Pelvic ultrasound Impression: 1. Fibroid uterus. 2. Right and left ovaries could not be identified. Head CT negative for any intracranial findings Assessment/Plan Assessment/Plan Anemia due to acute blood loss secondary to uterine fibroids seen on pelvic ultrasound History of menometrorrhagia for the past 6 months Hypokalemia Positive cannabinoid screen Admit to medicine Gynecology consult Pending PRBC transfusion Patient will need outpatient anemia evaluation Pending ferritin before PRBC transfusion hopefully Contraindicated for DVT prophylaxis ADA diet Full code Discussed with RN and SW Disposition pending Guynn consult Surrogate decision maker is the Justifications for Admission Other Justification KILO LARA MD Jun 27, 2020 17:30
[2020-06-27] MEDS: fentaNYL PF VIAL 100 MCG/2 ML VIAL IV PRN (18:33)
[2020-06-27] MEDS: diazePAM 5 MG TABLET PO SCH (22:27)
[2020-06-28] VITALS (7 sets, daily range): BP systolic 90–119; BP diastolic 51–61
[2020-06-28] MEDS: ESTROGENS, CONJUGATED 25 MG VIAL IV SCH ×2 (02:46→10:54)
[2020-06-28] MEDS: fentaNYL PF VIAL 100 MCG/2 ML VIAL IV PRN (05:17)
[2020-06-28] MEDS: diazePAM 5 MG TABLET PO SCH ×2 (10:54→14:27)
[2020-06-28] MEDS: IV NORMAL SALINE 1000ML BAG 1,000 ML IV SCH (10:55)
--- NOTE | 2020-06-28 11:23 | EKG ---
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
--- NOTE | 2020-06-28 12:34 | PDOC ---
[employer] PROGRESS NOTE Date of Service DOS: DATE: 06/28/20 TIME: 12:32 Chief Complaint Chief Complaint Anemia due to acute blood loss secondary to uterine fibroids seen on pelvic ultrasound Uterine fibroids History of menometrorrhagia for the past 6 months Hypokalemia Positive cannabinoid screen History of Present Illness History of Present Illness Ms Corcoran is a 39 year old female who presents with 2 days of lightheadedness, dizziness, seeing intermittent aguilar specks in her vision, blurred vision. She denies headache or syncope, nausea, vomiting, fever, neck pain, focal weakness, abdominal pain, chest pain, shortness of air. She has a history of migraines and anxiety. She states that she had been getting back spasms and she was here on June 05 and was given Valium. She states that she does not take the Valium daily only as needed for back spasms. She denies any pain at this time. Nothing makes her symptoms worse or better. Upon further questioning, patient states that she has had a history of anemia and heavy periods for the past 6 months. She is unsure whether she was given iron supplementation from her PCP. She does note pica symptoms over the past 8 months. 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 She notes a family history of bleeding fibroids and is asking for evaluation for hysterectomy. Hb 4, improved to 7.4 on transfusion of 2 u PRBC. She is feeling much better. Iron studies consistent with iron deficiency anemia. Vitals/I&O Vitals/I&O: Vital Signs Date Time Temp Pulse Resp B/P (MAP) Pulse Ox O2 Delivery O2 Flow Rate FiO2 06/28/20 11:03 98.4 70 17 107/57 (74) 100 Room Air 98.4 I & O 06/27/20 06/27/20 06/28/20 15:00 23:00 07:00 Intake Total 1000 ml 240 ml Output Total 800 ml Balance 1000 ml 240 ml -800 ml Physical Exam General: Alert, Oriented X3, Cooperative, No acute distress Heart: Regular rate, Normal S1, Normal S2 Lungs: Clear, Wheezing Abdomen: Normal bowel sounds, Soft Extremities: No clubbing, No cyanosis Skin: No rashes, No breakdown Labs Labs: Laboratory Tests Test 06/27/20 12:41 06/27/20 14:45 06/28/20 04:45 Bedside Urine HCG, Qualitative Hcg negative (Negative) SARS-CoV-2 Antigen (Rapid) Negative (NEGATIVE) Hemoglobin 7.4 g/dL (12.0-15.5) Assessment and Plan Assessmemt and Plan Problems Medical Problems: (1) Low hemoglobin Status: Acute Comment Review of Relevant I have reviewed the following items sergei (where applicable) has been applied. Medications: Current Medications Medications (Trade) Dose Ordered Sig/Maged Route PRN Reason Start Time Stop Time Status Last Admin Dose Admin Sodium Chloride 1,000 ml @ 1,000 mls/hr 1X ONCE IV 06/27/20 12:45 06/27/20 13:45 DC 06/27/20 13:31 Fentanyl Citrate (Fentanyl 2ml Vial) 50 mcg PRN Q1HR PRN IV PAIN 06/27/20 13:45 06/28/20 13:44 06/28/20 05:17 Sodium Chloride 1,000 ml @ 100 mls/hr Q10H IV 06/27/20 13:32 06/28/20 13:31 06/28/20 10:55 Estrogens Conjugated (Premarin) 25 mg Q6HRS IV 06/27/20 14:00 06/28/20 06:01 DC 06/28/20 10:54 Diazepam (Valium) 5 mg TID PO 06/27/20 22:30 06/28/20 10:54 Justifications for Admission Other Justification ABIMAEL COYNE MD Jun 28, 2020 12:34
[2020-06-28 12:52] LABS: CALCIUM 8.1 mg/dL (8.5-10.1); CREATININE 0.5 mg/dL (0.6-1.0); GFR 166.2; MAGNESIUM 2.1 mg/dL (1.8-2.4); POTASSIUM 3.7 mmol/L (3.5-5.1)
--- NOTE | 2020-06-28 14:44 | PDOC3 ---
Discharge Summary Visit Information Date of Admission: Jun 27, 2020 Date of Discharge: Jun 28, 2020 Admitting Diagnosis: Menorrhagia Final Diagnosis Problems Medical Problems: (1) Low hemoglobin Status: Acute Brief Hospital Course Allergies Allergies Coded Allergies Type Severity Reaction Last Updated Verified No Known Drug Allergies 10/23/17 No Vital Signs Vital Signs Date Time Temp Pulse Resp B/P (MAP) Pulse Ox O2 Delivery O2 Flow Rate FiO2 06/28/20 11:03 98.4 70 17 107/57 (74) 100 Room Air 98.4 Lab Results Laboratory Tests Test 06/27/20 12:05 06/27/20 12:07 06/27/20 12:30 06/27/20 12:41 White Blood Count 11.2 x10^3/uL (4.0-11.0) Red Blood Count 3.18 x10^6/uL (3.50-5.40) Hemoglobin 4.0 g/dL (12.0-15.5) Hematocrit 16.0 % (36.0-47.0) Mean Corpuscular Volume 50 fL (79-100) Mean Corpuscular Hemoglobin 13 pg (25-35) Mean Corpuscular Hemoglobin Concent 25 g/dL (31-37) Red Cell Distribution Width 26.4 % (11.5-14.5) Platelet Count 392 x10^3/uL (140-400) Neutrophils (%) (Auto) 76 % (31-73) Lymphocytes (%) (Auto) 19 % (24-48) Monocytes (%) (Auto) 4 % (0-9) Eosinophils (%) (Auto) 0 % (0-3) Basophils (%) (Auto) 1 % (0-3) Neutrophils # (Auto) 8.5 x10^3/uL (1.8-7.7) Lymphocytes # (Auto) 2.2 x10^3/uL (1.0-4.8) Monocytes # (Auto) 0.5 x10^3/uL (0.0-1.1) Eosinophils # (Auto) 0.0 x10^3/uL (0.0-0.7) Basophils # (Auto) 0.1 x10^3/uL (0.0-0.2) Platelet Estimate Adequate (ADEQUATE) Hypochromasia Marked Poikilocytosis Slight Anisocytosis Marked Microcytosis Marked Ovalocytes Present Prothrombin Time 14.4 SEC (11.7-14.0) Prothromb Time International Ratio 1.2 (0.8-1.1) Sodium Level 137 mmol/L (136-145) Potassium Level 3.4 mmol/L (3.5-5.1) Chloride Level 102 mmol/L (98-107) Carbon Dioxide Level 24 mmol/L (21-32) Anion Gap 11 (6-14) Blood Urea Nitrogen 8 mg/dL (7-20) Creatinine 0.4 mg/dL (0.6-1.0) Estimated GFR (Cockcroft-Gault) 215.0 BUN/Creatinine Ratio 20 (6-20) Glucose Level 100 mg/dL (70-99) Calcium Level 9.0 mg/dL (8.5-10.1) Ferritin 2 ng/mL (8-252) Total Bilirubin 0.1 mg/dL (0.2-1.0) Aspartate Amino Transf (AST/SGOT) 13 U/L (15-37) Alanine Aminotransferase (ALT/SGPT) 18 U/L (14-59) Alkaline Phosphatase 52 U/L (46-116) Total Protein 7.3 g/dL (6.4-8.2) Albumin 3.8 g/dL (3.4-5.0) Albumin/Globulin Ratio 1.1 (1.0-1.7) Troponin I Quantitative < 0.017 ng/mL (0.000-0.055) Urine Collection Type Unknown Urine Color Yellow Urine Clarity Clear Urine pH 6.0 (<5.0-8.0) Urine Specific [place] 1.010 (1.000-1.030) Urine Protein Negative mg/dL (NEG-TRACE) Urine Glucose (UA) Negative mg/dL (NEG) Urine Ketones (Stick) Negative mg/dL (NEG) Urine Blood Moderate (NEG) Urine Nitrite Negative (NEG) Urine Bilirubin Negative (NEG) Urine Urobilinogen Dipstick 0.2 mg/dL (0.2 mg/dL) Urine Leukocyte Esterase Negative (NEG) Urine RBC 1-2 /HPF (0-2) Urine WBC 5-10 /HPF (0-4) Urine Squamous Epithelial Cells Mod /LPF Urine Bacteria Few /HPF (0-FEW) Urine Mucus Marked /LPF Urine Opiates Screen Neg (NEG) Urine Methadone Screen Neg (NEG) Urine Barbiturates Neg (NEG) Urine Phencyclidine Screen Neg (NEG) Urine Amphetamine/Methamphetamine Neg (NEG) Urine Benzodiazepines Screen Pos (NEG) Urine Cocaine Screen Neg (NEG) Urine Cannabinoids Screen Pos (NEG) Urine Ethyl Alcohol Neg (NEG) Bedside Urine HCG, Qualitative Hcg negative (Negative) Test 06/27/20 14:30 06/27/20 14:45 06/28/20 04:45 Coronavirus (PCR) Not detected (Not Detected) SARS-CoV-2 Antigen (Rapid) Negative (NEGATIVE) Hemoglobin 7.4 g/dL (12.0-15.5) Sodium Level 139 mmol/L (136-145) Potassium Level 3.7 mmol/L (3.5-5.1) Chloride Level 105 mmol/L (98-107) Carbon Dioxide Level 26 mmol/L (21-32) Anion Gap 8 (6-14) Blood Urea Nitrogen 6 mg/dL (7-20) Creatinine 0.5 mg/dL (0.6-1.0) Estimated GFR (Cockcroft-Gault) 166.2 Glucose Level 86 mg/dL (70-99) Calcium Level 8.1 mg/dL (8.5-10.1) Magnesium Level 2.1 mg/dL (1.8-2.4) Iron Level 12 ug/dL (50-170) Total Iron Binding Capacity 518 ug/dL (250-450) Iron Saturation 2 % (15-34) Laboratory Tests Test 06/27/20 14:45 06/28/20 04:45 SARS-CoV-2 Antigen (Rapid) Negative (NEGATIVE) Hemoglobin 7.4 g/dL (12.0-15.5) Sodium Level 139 mmol/L (136-145) Potassium Level 3.7 mmol/L (3.5-5.1) Chloride Level 105 mmol/L (98-107) Carbon Dioxide Level 26 mmol/L (21-32) Anion Gap 8 (6-14) Blood Urea Nitrogen 6 mg/dL (7-20) Creatinine 0.5 mg/dL (0.6-1.0) Estimated GFR (Cockcroft-Gault) 166.2 Glucose Level 86 mg/dL (70-99) Calcium Level 8.1 mg/dL (8.5-10.1) Magnesium Level 2.1 mg/dL (1.8-2.4) Iron Level 12 ug/dL (50-170) Total Iron Binding Capacity 518 ug/dL (250-450) Iron Saturation 2 % (15-34) Brief Hospital Course Ms Corcoran is a 39 year old female who presents with 2 days of lightheadedness, dizziness, seeing intermittent aguilar specks in her vision, blurred vision. She denies headache or syncope, nausea, vomiting, fever, neck pain, focal weakness, abdominal pain, chest pain, shortness of air. She has a history of migraines and anxiety. She states that she had been getting back spasms and she was here on June 05 and was given Valium. She states that she does not take the Valium daily only as needed for back spasms. She denies any pain at this time. Nothing makes her symptoms worse or better. Upon further questioning, patient states that she has had a history of anemia and heavy periods for the past 6 months. She is unsure whether she was given iron supplementation from her PCP. She does note pica symptoms over the past 8 months. She has had to quit a job at [employer] and at a local [employer] due to her heavy periods, going through 2 boxes of tampons over a 6-7 day period for almost a year. She notes a family history of bleeding fibroids and is asking for evaluation for hysterectomy. TVUS - The uterus measures 10.6 x 8.9 x 6.5 cm. The endometrium measures 4.2 mm in thickness. There are heterogeneous echogenicities identified in the uterus measuring 3.0 cm, 2.7 cm and 3.1 cm likely fibroids. The right and left ovaries could not be visualized. Impression: 1. Fibroid uterus. 2. Right and left ovaries could not be identified. Hb 4, improved to 7.4 on transfusion of 2 u PRBC. She is feeling much better. Iron studies consistent with iron deficiency anemia. Consults: ENROLLMENT REPRESENTATIVE Problem list: Anemia due to acute blood loss secondary to uterine fibroids seen on pelvic ultrasound Uterine fibroids History of menometrorrhagia for the past 6 months Hypokalemia Positive cannabinoid screen Greater than 30 minutes spent on d/c home Discharge Information Condition at Discharge: Improved Follow Up: Weeks (1) Disposition/Orders: D/C to Home (1) Scheduled Azithromycin (Azithromycin Tablet) 250 Mg Tablet, 1 PKG PO UD, #6 Prescribed by: MIKKI GOODMAN APRN on 08/19/182112 Diazepam (Valium) 5 Mg Tablet, 5 MG PO TID for SPASM, #15 Prescribed by: GURINDER MENDOZA MD on 06/05/201133 Last Action: Continued on 06/27/202157 by AMINA FRENCH RN Prednisone (Prednisone) 50 Mg Tablet, 1 TAB PO DAILY, #4 Prescribed by: MIKKI GOODMAN APRN on 08/19/182112 Tramadol Hcl (Tramadol Hcl) 50 Mg Tablet, 1 TAB PO PRN Q6HRS, #12 Prescribed by: KARY BROWN PA-C on 10/23/17 2330 Last Action: Continued on 06/28/20 143 by ABIMAEL COYNE MD Scheduled PRN Hydrocodone/Apap 5-325 ([place] 5-325 Tablet) 1 Each Tablet, 1-2 EACH PO PRN Q6HRS PRN for PAIN, #15 as needed for pain Prescribed by: GURINDER MENDOZA MD on 06/05/201133 Last Action: Continued on 06/28/201436 by ABIMAEL COYNE MD Ibuprofen (Ibuprofen) 600 Mg Tablet, 600 MG PO PRN Q6HRS PRN for PAIN, #20 take with food or milk Prescribed by: GURINDER MENDOZA MD on 06/05/201133 Last Action: Reviewed on 06/27/201736 by JENNIFER GEORGE RN Justicifation of Admission Dx: Justifications for Admission: Justification of Admission Dx: Yes ABIMAEL COYNE MD Jun 28, 2020 14:43
[2020-06-28] MEDS ORDERED: traMADol 50 MG TABLET PO PRN (14:45)
[2020-06-28] MEDS ORDERED: ONDANSETRON PF 4 MG/2 ML VIAL. IVP PRN (14:45)
[2020-06-28] MEDS ORDERED: IRON SUCROSE COMPLEX 200 MG in IV NORMAL SALINE 100ML 100 ML IV ONE (14:45)
[2020-06-28] MEDS ORDERED: fentaNYL PF VIAL 100 MCG/2 ML VIAL IVP PRN (14:45)
[2020-06-28] MEDS ORDERED: HYDROcodone/APAP 5/325MG 1 TAB TABLET PO PRN (14:45)
[2020-06-28] MEDS ORDERED: TRAM50TA PO (17:28)
[2020-06-28] MEDS ORDERED: MEDR10TA PO (17:28)
--- NOTE | 2020-06-28 17:34 | PDOC2 ---
CONSULT Date of Consult Date of Consult DATE: 06/28/20 TIME: 17:28 Reason for Consult Reason for Consult: vaginal bleeding Referring Physician Referring Physician: Dr. Florez Identification/Chief Complaint Chief Complaint dizziness and fatigue Source Source: Chart review, Patient History of Present Illness Reason for Visit: 39 y/o presented to ED with c/o dizziness, visual changes and extreme fatigue for past few days that continued to worsen. Hgb 4 on arrival in ED. Pelvic sono indicated multiple fibroids up to 3.5 cm in size. She reports mense s every 30 days, lasts 7 days with heavy flow for past 5 years and severe pain for past 7 months. She uses 2 boxes of tampons and pads during the 7 day menses due to heavy flow. Past Surgical History Past Surgical History: Tubal Ligation Current Problem List Problem List Problems Medical Problems: (1) Low hemoglobin Status: Acute Current Medications Current Medications Current Medications Diazepam (Valium) 5 mg 1X ONCE PO Last administered on 06/27/20at 12:13; Start 06/27/20 at 12:15; Stop 06/27/20 at 12:16; Status DC Sodium Chloride 1,000 ml @ 1,000 mls/hr 1X ONCE IV Last administered on 06/27/20at 13:31; Start 06/27/20 at 12:45; Stop 06/27/20 at 13:45; Status DC Ondansetron HCl (Zofran) 4 mg PRN Q8HRS PRN IV NAUSEA/VOMITING; Start 06/27/20 at 13:45; Stop 06/28/20 at 13:44; Status DC Fentanyl Citrate (Fentanyl 2ml Vial) 50 mcg PRN Q1HR PRN IV PAIN Last administered on 06/28/20at 05:17; Start 06/27/20 at 13:45; Stop 06/28/20 at 13:44; Status DC Sodium Chloride 1,000 ml @ 100 mls/hr Q10H IV Last administered on 06/28/20at 10:55; Start 06/27/20 at 13:32; Stop 06/28/20 at 13:31; Status DC Acetaminophen (Tylenol) 650 mg PRN Q4HRS PRN PO FEVER > 100.3'F; Start 06/27/20 at 13:45; Stop 06/28/20 at 13:44; Status DC Estrogens Conjugated (Premarin) 25 mg Q6HRS IV Last administered on 06/28/20at 10:54; Start 06/27/20 at 14:00; Stop 06/28/20 at 06:01; Status DC Diazepam (Valium) 5 mg TID PO Last administered on 06/28/20at 14:27; Start 06/27/20 at 22:30; Stop 06/28/20 at 14:36; Status DC Iron Sucrose 200 mg/Sodium Chloride 110 ml @ 55 mls/hr 1X ONCE IV Last administered on 06/28/20at 16:28; Start 06/28/20 at 14:45; Stop 06/28/20 at 16:44; Status DC Diazepam (Valium) 5 mg PRN TID PRN PO anxiety; Start 06/28/20 at 21:00 Acetaminophen/ Hydrocodone Bitart (Lortab 5/325) 1 tab PRN Q6HRS PRN PO SEVERE PAIN 7-10 Last administered on 06/28/20at 16:30; Start 06/28/20 at 14:45 Tramadol HCl (Ultram) 50 mg PRN Q6HRS PRN PO MODERATE PAIN; Start 06/28/20 at 14:45 Ondansetron HCl (Zofran) 4 mg PRN Q4HRS PRN IVP NAUSEA/VOMITING; Start 06/28/20 at 14:45 Fentanyl Citrate (Fentanyl 2ml Vial) 25 mcg PRN Q4HRS PRN IVP PAIN; Start 06/28/20 at 14:45 Active Scripts Active Valium (Diazepam) 5 Mg Tablet 5 Mg PO TID Ibuprofen 600 Mg Tablet 600 Mg PO PRN Q6HRS PRN take with food or milk [place] 5-325 Tablet (Acetaminophen/Hydrocodone Bitart) 1 Each Tablet 1-2 Each PO PRN Q6HRS PRN as needed for pain Prednisone 50 Mg Tablet 1 Tab PO DAILY Azithromycin Tablet (Azithromycin) 250 Mg Tablet 1 Pkg PO UD Tramadol Hcl 50 Mg Tablet 1 Tab PO PRN Q6HRS Allergies Allergies: Coded Allergies: No Known Drug Allergies (Unverified , 10/23/17) ROS General: YES: Fatigue; No: Chills, Night Sweats, Malaise, Appetite, Other PSYCHOLOGICAL ROS: No: Anxiety, Behavioral Disorder, Concentration difficultie, Decreased libido, Depression, Disorientation, Hallucinations, Hostility, Irritablity, Memory difficulties, Mood Swings, Obsessive thoughts, Physical abuse, Sexual abuse, Sleep disturbances, Suicidal ideation, Other Eyes: No Blurry vision, No Decreased vision, No Double vision, No Dry eyes, No Excessive tearing, No Eye Pain, No Itchy Eyes, No Loss of vision, No Photophobia, No Scotomata, No Uses contacts, No Uses glasses, No Other HEENT: No: Heacaches, Visual Changes, Hearing change, Nasal congestion, Nasal discharge, Oral lesions, Sinus pain, Sore Throat, Epistaxis, Sneezing, Snoring, Tinnitus, Vertigo, Vocal changes, Other ALLERGY AND IMMUNOLOGY: No: Hives, Insect Bite Sensitivity, Itchy/Watery Eyes, Nasal Congestion, Post Nasal Drip, Seasonal Allergies, Other Hematological and Lymphatic: No: Bleeding Problems, Blood Clots, Blood Transfusions, Brusing, Night Sweats, Pallor, Swollen Lymph Nodes, Other ENDOCRINE: No: Breast Changes, Galactorrhea, Hair Pattern Changes, Hot Flashes, Malaise/lethargy, Mood Swings, Palpitations, Polydipsia/polyuria, Skin Changes, Temperature Intolerance, Unexpected Weight Changes, Other Breast: No New/Changing Breast Lumps, No Nipple changes, No Nipple discharge, No Other Respiratory: No: Cough, Hemoptysis, Orthopnea, Pleuritic Pain, Shortness of breath, SOB with excertion, Sputum Changes, Stridor, Tachypnea, Wheezing, Other Cardiovascular: No Chest Pain, No Palpitations, No Orthopnea, No Paroxysmal Noc. Dyspnea, No Edema, No Lt Headedness, No Other Gastrointestinal: No Nausea, No Vomiting, No Abdominal Pain, No Diarrhea, No Constipation, No Melena, No Hematochezia, No Other Genitourinary: No Dysuria, No Frequency, No Incontinence, No Hematuria, No Retention, No Discharge, No Urgency, No Pain, No Flank Pain, No Other, No , No , No , No , No , No , No Neurological: Yes Dizziness, Yes Visual Changes, Yes Weakness Skin: No Dry Skin, No Eczema, No Hair Changes, No Lumps, No Mole Changes, No Mottling, No Nail Changes, No Pruritus, No Rash, No Skin Lesion Changes, No Other, No Acne Physical Exam General: Alert, Oriented X3, Cooperative HEENT: Atraumatic Lungs: Clear to auscultation Heart: Regular rate Abdomen: Normal bowel sounds, Soft, No tenderness, No masses Extremities: No clubbing Psych/Mental Status: Mental status NL Vitals VITALS Vital Signs Date Time Temp Pulse Resp B/P (MAP) Pulse Ox O2 Delivery O2 Flow Rate FiO2 06/28/20 16:30 16 Room Air 06/28/20 15:21 98.5 67 113/55 (74) 97 98.5 Labs Labs Laboratory Tests Test 06/27/20 12:05 06/27/20 12:07 06/27/20 12:30 06/27/20 12:41 White Blood Count 11.2 x10^3/uL (4.0-11.0) Red Blood Count 3.18 x10^6/uL (3.50-5.40) Hemoglobin 4.0 g/dL (12.0-15.5) Hematocrit 16.0 % (36.0-47.0) Mean Corpuscular Volume 50 fL (79-100) Mean Corpuscular Hemoglobin 13 pg (25-35) Mean Corpuscular Hemoglobin Concent 25 g/dL (31-37) Red Cell Distribution Width 26.4 % (11.5-14.5) Platelet Count 392 x10^3/uL (140-400) Neutrophils (%) (Auto) 76 % (31-73) Lymphocytes (%) (Auto) 19 % (24-48) Monocytes (%) (Auto) 4 % (0-9) Eosinophils (%) (Auto) 0 % (0-3) Basophils (%) (Auto) 1 % (0-3) Neutrophils # (Auto) 8.5 x10^3/uL (1.8-7.7) Lymphocytes # (Auto) 2.2 x10^3/uL (1.0-4.8) Monocytes # (Auto) 0.5 x10^3/uL (0.0-1.1) Eosinophils # (Auto) 0.0 x10^3/uL (0.0-0.7) Basophils # (Auto) 0.1 x10^3/uL (0.0-0.2) Platelet Estimate Adequate (ADEQUATE) Hypochromasia Marked Poikilocytosis Slight Anisocytosis Marked Microcytosis Marked Ovalocytes Present Prothrombin Time 14.4 SEC (11.7-14.0) Prothromb Time International Ratio 1.2 (0.8-1.1) Sodium Level 137 mmol/L (136-145) Potassium Level 3.4 mmol/L (3.5-5.1) Chloride Level 102 mmol/L (98-107) Carbon Dioxide Level 24 mmol/L (21-32) Anion Gap 11 (6-14) Blood Urea Nitrogen 8 mg/dL (7-20) Creatinine 0.4 mg/dL (0.6-1.0) Estimated GFR (Cockcroft-Gault) 215.0 BUN/Creatinine Ratio 20 (6-20) Glucose Level 100 mg/dL (70-99) Calcium Level 9.0 mg/dL (8.5-10.1) Ferritin 2 ng/mL (8-252) Total Bilirubin 0.1 mg/dL (0.2-1.0) Aspartate Amino Transf (AST/SGOT) 13 U/L (15-37) Alanine Aminotransferase (ALT/SGPT) 18 U/L (14-59) Alkaline Phosphatase 52 U/L (46-116) Total Protein 7.3 g/dL (6.4-8.2) Albumin 3.8 g/dL (3.4-5.0) Albumin/Globulin Ratio 1.1 (1.0-1.7) Troponin I Quantitative < 0.017 ng/mL (0.000-0.055) Urine Collection Type Unknown Urine Color Yellow Urine Clarity Clear Urine pH 6.0 (<5.0-8.0) Urine Specific [place] 1.010 (1.000-1.030) Urine Protein Negative mg/dL (NEG-TRACE) Urine Glucose (UA) Negative mg/dL (NEG) Urine Ketones (Stick) Negative mg/dL (NEG) Urine Blood Moderate (NEG) Urine Nitrite Negative (NEG) Urine Bilirubin Negative (NEG) Urine Urobilinogen Dipstick 0.2 mg/dL (0.2 mg/dL) Urine Leukocyte Esterase Negative (NEG) Urine RBC 1-2 /HPF (0-2) Urine WBC 5-10 /HPF (0-4) Urine Squamous Epithelial Cells Mod /LPF Urine Bacteria Few /HPF (0-FEW) Urine Mucus Marked /LPF Urine Opiates Screen Neg (NEG) Urine Methadone Screen Neg (NEG) Urine Barbiturates Neg (NEG) Urine Phencyclidine Screen Neg (NEG) Urine Amphetamine/Methamphetamine Neg (NEG) Urine Benzodiazepines Screen Pos (NEG) Urine Cocaine Screen Neg (NEG) Urine Cannabinoids Screen Pos (NEG) Urine Ethyl Alcohol Neg (NEG) Bedside Urine HCG, Qualitative Hcg negative (Negative) Test 06/27/20 14:30 06/27/20 14:45 06/28/20 04:45 Coronavirus (PCR) Not detected (Not Detected) SARS-CoV-2 Antigen (Rapid) Negative (NEGATIVE) Hemoglobin 7.4 g/dL (12.0-15.5) Sodium Level 139 mmol/L (136-145) Potassium Level 3.7 mmol/L (3.5-5.1) Chloride Level 105 mmol/L (98-107) Carbon Dioxide Level 26 mmol/L (21-32) Anion Gap 8 (6-14) Blood Urea Nitrogen 6 mg/dL (7-20) Creatinine 0.5 mg/dL (0.6-1.0) Estimated GFR (Cockcroft-Gault) 166.2 Glucose Level 86 mg/dL (70-99) Calcium Level 8.1 mg/dL (8.5-10.1) Magnesium Level 2.1 mg/dL (1.8-2.4) Iron Level 12 ug/dL (50-170) Total Iron Binding Capacity 518 ug/dL (250-450) Iron Saturation 2 % (15-34) Laboratory Tests Test 06/28/20 04:45 Hemoglobin 7.4 g/dL (12.0-15.5) Sodium Level 139 mmol/L (136-145) Potassium Level 3.7 mmol/L (3.5-5.1) Chloride Level 105 mmol/L (98-107) Carbon Dioxide Level 26 mmol/L (21-32) Anion Gap 8 (6-14) Blood Urea Nitrogen 6 mg/dL (7-20) Creatinine 0.5 mg/dL (0.6-1.0) Estimated GFR (Cockcroft-Gault) 166.2 Glucose Level 86 mg/dL (70-99) Calcium Level 8.1 mg/dL (8.5-10.1) Magnesium Level 2.1 mg/dL (1.8-2.4) Iron Level 12 ug/dL (50-170) Total Iron Binding Capacity 518 ug/dL (250-450) Iron Saturation 2 % (15-34) Assessment/Plan Assessment/Plan A: Fibroids Menorrhagia P: Agree with transfusion 2 Units PRBC's and iron transfusion. Pt. was provided IV premarin x 4 doses to help stop vaginal bleeding which has stopped. Counseled on Provera 10mg BID and will complete endometrial biopsy in clinic in 2 weeks. Thank you for consult. ANDRY REGAN Jr, MD Jun 28, 2020 17:34
--- NOTE | 2020-06-28 17:51 | NUR ---
SW following. Spoke with RN and reviewed chart. Pt to discharge home today self-care with no SW needs.
--- NOTE | 2020-06-28 18:51 | NUR ---
Discharge instructions given to patient regarding following up with Dr. Enrique. Pamphlet and contact information given. Education given over anemia and medications. Prescriptions given. Pt verbalizes understanding and is awaiting her ride.
[2020-06-28] MEDS ORDERED: diazePAM 5 MG TABLET PO PRN (21:00)
== END 2020-06-28 19:15 | disposition home or self-care (01) | DRG 760 ==
LOC: ER 11:40 → 6 SOUTH 13:30
PROVIDERS: ADMIT Internal Medicine; ATTEND Internal Medicine
PROC: 30233N1 Transfusion of Nonautologous Red Blood Cells into Peripheral Vein, Percutaneous Approach (ICD-10-PCS; principal; 2020-06-27)
DX: D25.9 Leiomyoma of uterus, unspecified (principal); D62 Acute posthemorrhagic anemia; F41.9 Anxiety disorder, unspecified; G43.909 Migraine, unspecified, not intractable, without status migrainosus; Z20.828 Contact with and (suspected) exposure to other viral communicable diseases; E87.6 Hypokalemia; N92.0 Excessive and frequent menstruation with regular cycle; D50.9 Iron deficiency anemia, unspecified; F12.90 Cannabis use, unspecified, uncomplicated; Z87.891 Personal history of nicotine dependence; Z98.51 Tubal ligation status
CPT/HCPCS: 36415; 70450; 76856; 80048; 80053; 80307; 81001; 81025; 82728; 83540; 83550; 83735; 84484; 85018; 85025; 85610; 86850; 86900; 86901; 86920; 87077; 87086; 87426; 93005; 96360; 99285; J1410; J1756; J2405; J3010; J7030; P9016; G0378; U0003-CS

== ENCOUNTER 2020-07-23 11:35 | Emergency (ER) | payer OTHER ==
[~2020-07-23] VITALS: Ht 152.4 cm; Wt 55.4 kg
[~2020-07-23 11:35] MED LIST changes: +MEDR10TA PO
[2020-07-23 12:25] LABS: BASO # 0.2 x10^3/uL (0.0-0.2); BASO % 2 % (0-3); EOS % 1 % (0-3); HEMATOCRIT 32.7 % (36.0-47.0); HEMOGLOBIN 9.8 g/dL (12.0-15.5); LYMPH # 2.1 x10^3/uL (1.0-4.8); LYMPH % 21 % (24-48); MEAN CORPUSCULAR HEMOGLOBIN 20 pg (25-35); MEAN CORPUSCULAR HGB CONC 30 g/dL (31-37); MEAN CORPUSCULAR VOLUME 68 fL (79-100); MONO # 0.8 x10^3/uL (0.0-1.1); MONO % 7 % (0-9); NEUT # 7.2 x10^3/uL (1.8-7.7); NEUT % 70 % (31-73); PLATELET COUNT 373 x10^3/uL (140-400); RED BLOOD COUNT 4.83 x10^6/uL (3.50-5.40); RED CELL DISTRIBUTION WIDTH 38.7 % (11.5-14.5); WHITE BLOOD COUNT 10.3 x10^3/uL (4.0-11.0)
[2020-07-23 12:27] LABS: BILIRUBIN,URINE NEGATIVE (NEG); CLARITY,URINE CLEAR; COLOR,URINE YELLOW; NITRITE,URINE NEGATIVE (NEG); PROTEIN,URINE NEGATIVE (NEG-TRACE); UROBILINOGEN,URINE 0.2 mg/dL (0.2 mg/dL)
[2020-07-23] MEDS ORDERED: IV NORMAL SALINE 1000ML BAG 1,000 ML IV ONE (12:30)
[2020-07-23] MEDS ORDERED: MORPHINE SULFATE 10 MG/ML VIAL. IV ONE (12:30)
[2020-07-23 12:42] LABS: SQUAMOUS EPITHELIAL CELL,UR FEW /LPF
[2020-07-23 12:43] LABS: BACTERIA,URINE 0 /HPF (0-FEW); WBC,URINE OCC /HPF (0-4)
[2020-07-23 12:55] LABS: CALCIUM 9.6 mg/dL (8.5-10.1); CREATININE 0.5 mg/dL (0.6-1.0); GFR 166.2; POTASSIUM 3.8 mmol/L (3.5-5.1)
[2020-07-23 13:01] LABS: ALBUMIN 4.1 g/dL (3.4-5.0); ALBUMIN/GLOBULIN RATIO 1.1 (1.0-1.7); TOTAL BILIRUBIN 0.2 mg/dL (0.2-1.0); TOTAL PROTEIN 7.8 g/dL (6.4-8.2)
[2020-07-23 13:56] LABS: PLT ESTIMATE ADEQUATE (ADEQUATE)
[2020-07-23 13:57] LABS: ANISOCYTOSIS MARKED; HYPOCHROMIA MARKED; MICROCYTOSIS MARKED; SCHISTOCYTES OCC; TEAR DROP CELLS OCC
--- NOTE | 2020-07-23 14:19 | PHYS DOC ---
Past Medical History Past Medical History: No Pertinent History, Anxiety, Migraines, Other Additional Past Medical Histor: back spasms Past Surgical History: Tubal ligation Smoking Status: Current Every Day Smoker Alcohol Use: None Drug Use: None General Adult EDM: Chief Complaint: VAGINAL BLEEDING HPI: HPI: Patient is a 39 year old female with history of dysmenorrhea who presents to the ED today complaining of vaginal bleeding that began 5 days after she had endometrial biopsy which was done 2 weeks ago. Patient states the bleeding is heavy, she is using 1 pad every 1-1/2 hours. She states she was seen by the TUBE BACKER who scheduled her for hysterectomy on July 29, 2020 which is 5 days out. She states she was put on progesterone. Patient is also complaining of 8 out of 10 abdominal cramping. Also states she is dizzy. Denies any nausea vomiting. Review of Systems: Review of Systems: Constitutional: Denies fever or chills. [] Eyes: Denies change in visual acuity. [] HENT: Denies nasal congestion or sore throat. [] Respiratory: Denies cough or shortness of breath. [] Cardiovascular: Denies chest pain or edema. [] GI: Reports vaginal bleeding and abdominal cramping, denies any nausea vomiting : Denies dysuria. [] Musculoskeletal: Denies back pain or joint pain. [] Integument: Denies rash. [] Neurologic: Denies headache, focal weakness or sensory changes. [] Endocrine: Denies polyuria or polydipsia. [] Lymphatic: Denies swollen glands. [] Psychiatric: Denies depression or anxiety. [] Heart Score: Risk Factors: Risk Factors: DM, Current or recent (<one month) smoker, HTN, HLP, family history of CAD, obesity. Risk Scores: Score 0 - 3: 2.5% MACE over next 6 weeks - Discharge Home Score 4 - 6: 20.3% MACE over next 6 weeks - Admit for Clinical Observation Score 7 - 10: 72.7% MACE over next 6 weeks - Early Invasive Strategies Current Medications: Current Medications Medications (Trade) Dose Ordered Sig/Maged Start Time Stop Time Status Last Admin Dose Admin Morphine Sulfate (Morphine Sulfate) 5 mg 1X ONCE 07/23/20 12:30 07/23/20 12:31 DC 07/23/20 12:28 5 MG Sodium Chloride 1,000 ml @ 1,000 mls/hr 1X ONCE 07/23/20 12:30 07/23/20 13:29 DC 07/23/20 12:28 1,000 MLS/HR Allergies: Allergies: Allergies Coded Allergies Type Severity Reaction Last Updated Verified No Known Drug Allergies 10/23/17 No Physical Exam: PE: Constitutional: Well developed, well nourished, no acute distress, non-toxic appearance. [] HENT: Normocephalic, atraumatic, bilateral external ears normal, oropharynx moist, no oral exudates, nose normal. [] Eyes: PERRLA, EOMI, conjunctiva normal, no discharge. [] Neck: Normal range of motion, no tenderness, supple, no stridor. [] Cardiovascular:Heart rate regular rhythm, no murmur [] Lungs & Thorax: Bilateral breath sounds clear to auscultation [] Abdomen: Bowel sounds normal, soft, no tenderness, no masses, no pulsatile masses. [] Pelvic exam External pelvic appears normal, cervix is not well visualized, small amount of bright red blood noted in the vaginal vault, no CMT, no adnexal tenderness Skin: Warm, dry, no erythema, no rash. [] Back: No tenderness, no CVA tenderness. [] Extremities: No tenderness, no cyanosis, no clubbing, ROM intact, no edema. [] Neurologic: Alert and oriented X 3, normal motor function, normal sensory function, no focal deficits noted. [] Psychologic: Affect normal, judgement normal, mood normal. [] Current Patient Data: Labs: Laboratory Tests Test 07/23/20 11:55 White Blood Count 10.3 x10^3/uL (4.0-11.0) Red Blood Count 4.83 x10^6/uL (3.50-5.40) Hemoglobin 9.8 g/dL (12.0-15.5) L Hematocrit 32.7 % (36.0-47.0) L Mean Corpuscular Volume 68 fL (79-100) L Mean Corpuscular Hemoglobin 20 pg (25-35) L Mean Corpuscular Hemoglobin Concent 30 g/dL (31-37) L Red Cell Distribution Width 38.7 % (11.5-14.5) H Platelet Count 373 x10^3/uL (140-400) Neutrophils (%) (Auto) 70 % (31-73) Lymphocytes (%) (Auto) 21 % (24-48) L Monocytes (%) (Auto) 7 % (0-9) Eosinophils (%) (Auto) 1 % (0-3) Basophils (%) (Auto) 2 % (0-3) Neutrophils # (Auto) 7.2 x10^3/uL (1.8-7.7) Lymphocytes # (Auto) 2.1 x10^3/uL (1.0-4.8) Monocytes # (Auto) 0.8 x10^3/uL (0.0-1.1) Eosinophils # (Auto) 0.0 x10^3/uL (0.0-0.7) Basophils # (Auto) 0.2 x10^3/uL (0.0-0.2) Platelet Estimate Adequate (ADEQUATE) Large Platelets Occ Hypochromasia Marked Poikilocytosis Anisocytosis Marked Microcytosis Marked Tear Drop Cells Occ Schistocytes Occ Urine Collection Type Unknown Urine Color Yellow Urine Clarity Clear Urine pH 6.0 (<5.0-8.0) Urine Specific Weiser 1.025 (1.000-1.030) Urine Protein Negative mg/dL (NEG-TRACE) Urine Glucose (UA) Negative mg/dL (NEG) Urine Ketones (Stick) Negative mg/dL (NEG) Urine Blood Negative (NEG) Urine Nitrite Negative (NEG) Urine Bilirubin Negative (NEG) Urine Urobilinogen Dipstick 0.2 mg/dL (0.2 mg/dL) Urine Leukocyte Esterase Negative (NEG) Urine RBC 1-2 /HPF (0-2) Urine WBC Occ /HPF (0-4) Urine Squamous Epithelial Cells Few /LPF Urine Bacteria 0 /HPF (0-FEW) Urine Mucus Marked /LPF Maternal Serum HCG Beta Subunit < 1 mIU/mL (0-5) Sodium Level 139 mmol/L (136-145) Potassium Level 3.8 mmol/L (3.5-5.1) Chloride Level 104 mmol/L (98-107) Carbon Dioxide Level 26 mmol/L (21-32) Anion Gap 9 (6-14) Blood Urea Nitrogen 13 mg/dL (7-20) Creatinine 0.5 mg/dL (0.6-1.0) L Estimated GFR (Cockcroft-Gault) 166.2 BUN/Creatinine Ratio 26 (6-20) H Glucose Level 98 mg/dL (70-99) Calcium Level 9.6 mg/dL (8.5-10.1) Total Bilirubin 0.2 mg/dL (0.2-1.0) Aspartate Amino Transferase (AST) 13 U/L (15-37) L Alanine Aminotransferase (ALT) 19 U/L (14-59) Alkaline Phosphatase 60 U/L (46-116) Total Protein 7.8 g/dL (6.4-8.2) Albumin 4.1 g/dL (3.4-5.0) Albumin/Globulin Ratio 1.1 (1.0-1.7) Laboratory Tests 07/23/20 11:55 Laboratory Tests 07/23/20 11:55 Vital Signs: Vital Signs Date Time Temp Pulse Resp B/P (MAP) Pulse Ox O2 Delivery O2 Flow Rate FiO2 07/23/20 12:28 18 07/23/20 12:03 98.7 92 146/63 (90) 100 Room Air 98.7 EKG: EKG: [] Radiology/Procedures: Radiology/Procedures: [] Course & Med Decision Making: Course & Med Decision Making Pertinent Labs and Imaging studies reviewed. (See chart for details) This is a 39-year-old female patient with a history of dysmenorrhea presenting today complaining of vaginal bleeding and abdominal cramping. Bleeding has been going on for roughly 10 days. Patient is scheduled to have a hysterectomy in 5 days. Hemoglobin in the ED is 9.8 with hematocrit of 32.7. I spoke to patient's TUBE BACKER Dr. Enrique he requested patient to increase her progesterone to 20 mg 3 times daily and they will do her hysterectomy as scheduled on July 29. Patient has no distress. Will discharge to home. Dragon Disclaimer: Dragon Disclaimer: This electronic medical record was generated, in whole or in part, using a voice recognition dictation system. Departure Departure Impression: Primary Impression: Dysmenorrhea Additional Impression: Dysfunctional uterine bleeding Disposition: , SELF-CARE Condition: STABLE Referrals: NO PCP (PCP) follow up with him as scheduled ANDRY ENRIQUE Jr, MD Patient Instructions: Dysmenorrhea, [id number], Uterine Bleeding, Dysfunctional Additional Instructions: You were evaluated in the emergency room for vaginal bleeding. Please increase your progesterone to 20 mg 3 times a day. Follow-up with your TUBE BACKER for hysterectomy on July 29 2020. Justicifation of Admission Dx: Justifications for Admission: Justification of Admission Dx: Yes MAURA NÚÑEZ APRN Jul 23, 2020 14:19
[2020-07-23 14:52] VITALS: BP 129/65
== END 2020-07-23 15:17 | disposition home or self-care (01) ==
LOC: ER 11:35
DX: N93.8 Other specified abnormal uterine and vaginal bleeding (principal); N94.6 Dysmenorrhea, unspecified; G43.909 Migraine, unspecified, not intractable, without status migrainosus; F17.200 Nicotine dependence, unspecified, uncomplicated; F41.9 Anxiety disorder, unspecified; Z98.51 Tubal ligation status
CPT/HCPCS: 36415; 80053; 81001; 84702; 85025; 86850; 86900; 86901; 96361; 96374; 99285; J2270; J7030

== ENCOUNTER → 2020-07-26 | Outpatient (CLI) | payer OTHER ==
[2020-07-23 14:52] VITALS: BP 129/65
== END | disposition home or self-care (01) ==
LOC: SURGPAT 10:10
PROVIDERS: ATTEND Obstetrics & Gynecology
DX: Z01.812 Encounter for preprocedural laboratory examination (principal); D21.9 Benign neoplasm of connective and other soft tissue, unspecified; Z20.828 Contact with and (suspected) exposure to other viral communicable diseases
CPT/HCPCS: U0003-CS

== ENCOUNTER 2020-07-29 09:24 | Observation (INO) | payer OTHER ==
[2020-07-29] VITALS (11 sets, daily range): BP systolic 122–147; BP diastolic 55–77
[~2020-07-29] VITALS: Ht 152.4 cm; Wt 55.3 kg
[~2020-07-29 09:24] MED LIST changes: +DEXAMETHASONE SOD PHOS 4 MG/ML VIAL ONE; +IV RINGERS,LACTATED 1000ML 1,000 ML IV SCH; +LIDOCAINE 2% PF 5 ML VIAL. ONE; +MIDAZOLAM HCL/PF 2 MG/2 ML VIAL. ONE; +ONDANSETRON PF 4 MG/2 ML VIAL. IV PRN; +ONDANSETRON PF 4 MG/2 ML VIAL. ONE; +PROPOFOL 10 MG/ML (20ML) VIAL. IV ONE; +ROCURONIUM 50 MG/5 ML VIAL. ONE; +ceFAZolin SODIUM IV Push 1 GM VIAL. IVP ONE; +fentaNYL PF VIAL 100 MCG/2 ML VIAL IV PRN; +fentaNYL PF VIAL 100 MCG/2 ML VIAL ONE
[2020-07-29] MEDS ORDERED: BUPIVACAINE-EPI 0.5%-1:200000 MPF 30 ML VIAL. ONE (10:16)
[2020-07-29] MEDS ORDERED: SURGICEL HEMOSTAT 4X8 EACH. ONE (10:16)
[2020-07-29] MEDS ORDERED: LIDOCAINE 1%/EPI 1:100,000 20 ML VIAL. ONE (10:16)
[2020-07-29] MEDS ORDERED: INDIGOTINDISULFONATE SODIUM 40 MG/5 ML AMPUL. ONE (10:16)
[2020-07-29] MEDS ORDERED: ESTROGENS, CONJ VAGINAL CREAM 30GM TUBE. VG ONE (10:30)
[2020-07-29 10:53] LABS: BASO # 0.1 x10^3/uL (0.0-0.2); BASO % 1 % (0-3); EOS # 0.1 x10^3/uL (0.0-0.7); EOS % 1 % (0-3); HEMATOCRIT 26.8 % (36.0-47.0); HEMOGLOBIN 8.2 g/dL (12.0-15.5); LYMPH # 1.5 x10^3/uL (1.0-4.8); LYMPH % 15 % (24-48); MEAN CORPUSCULAR HEMOGLOBIN 21 pg (25-35); MEAN CORPUSCULAR HGB CONC 31 g/dL (31-37); MEAN CORPUSCULAR VOLUME 68 fL (79-100); MONO # 0.6 x10^3/uL (0.0-1.1); MONO % 6 % (0-9); NEUT # 7.7 x10^3/uL (1.8-7.7); NEUT % 77 % (31-73); PLATELET COUNT 388 x10^3/uL (140-400); RED BLOOD COUNT 3.93 x10^6/uL (3.50-5.40); RED CELL DISTRIBUTION WIDTH 36.1 % (11.5-14.5)
[2020-07-29] MEDS ORDERED: ceFAZolin SODIUM IV Push 1 GM VIAL. IVP ONE (11:20)
[2020-07-29] MEDS ORDERED: DEXAMETHASONE SOD PHOS 4 MG/ML VIAL ONE (11:48)
[2020-07-29] MEDS ORDERED: FAMOTIDINE 20 MG/2 ML VIAL ONE (11:48)
[2020-07-29 12:35] LABS: ANISOCYTOSIS MOD; HYPOCHROMIA PRESENT; MICROCYTOSIS MOD; PLT ESTIMATE ADEQUATE (ADEQUATE); POLYCHROMASIA OCCASIONAL
[2020-07-29] MEDS ORDERED: fentaNYL PF VIAL 100 MCG/2 ML VIAL ONE (12:41)
[2020-07-29] MEDS ORDERED: KETOROLAC 30 MG/ML VIAL. ONE (12:41)
[2020-07-29] MEDS ORDERED: NEOSTIGMINE METHYLSULFATE 5 MG/5 ML SYRINGE. ONE (12:48)
[2020-07-29] MEDS ORDERED: GLYCOPYRROLATE 1 MG/5 ML VIAL. ONE (12:48)
[2020-07-29] MEDS ORDERED: SEVOFLURANE 61 TO 120 MINUTES. IH ONE (13:06)
--- NOTE | 2020-07-29 13:34 | PDOC ---
BRIEF OPERATIVE NOTE Date: Jul 29, 2020 Pre-Op Diagnosis 1. Fibroids 2. Menorrhagia 3. Anemia Post-Op Diagnosis SAme Procedure Performed [facility] Surgeon Dr. Enrique Anesthesia Type: General Blood Loss 75 ml Specimens Obtained cervix, uterus, maggie. fallopian tubes Findings enlarged, fibroid uterus; nml fallopian tubes and ovaries maggie. Complications none Operative Note see dictation ANDRY ENRIQUE Jr, MD Jul 29, 2020 13:34
[2020-07-29] MEDS ORDERED: diphenhydrAMINE 50 MG/ML VIAL IV PRN (13:45)
[2020-07-29] MEDS ORDERED: OPIUM/BELLADONNA 30/16.2MG SUPP.RECT. PR PRN (13:45)
[2020-07-29] MEDS ORDERED: SIMETHICONE 80 MG TAB.CHEW PO PRN (13:45)
[2020-07-29] MEDS ORDERED: ZOLPIDEM 5 MG TABLET. PO PRN (13:45)
[2020-07-29] MEDS ORDERED: DEXTROSE 50% 25 GM / 50ML DISP.SYRIN. IV PRN (13:45)
[2020-07-29] MEDS ORDERED: ONDANSETRON PF 4 MG/2 ML VIAL. IV PRN (13:45)
[2020-07-29] MEDS ORDERED: 0.9 % SODIUM CHLORIDE 10 ML DISP.SYRIN. IV PRN (13:45)
[2020-07-29] MEDS ORDERED: diphenhydrAMINE HCL 25 MG CAPSULE PO PRN (13:45)
[2020-07-29] MEDS ORDERED: CALCIUM CARBONATE 500 MG TAB.CHEW PO PRN (13:45)
[2020-07-29] MEDS ORDERED: PROCHLORPERAZINE 10 MG/2 ML VIAL. IV PRN (13:45)
--- NOTE | 2020-07-29 13:49 | OP ---
DATE OF SURGERY: 07/29/2020 PREOPERATIVE DIAGNOSES: 1. Fibroids. 2. Menorrhagia. 3. Anemia. POSTOPERATIVE DIAGNOSES: 1. Fibroids. 2. Menorrhagia. 3. Anemia. PROCEDURE: Laparoscopic assisted vaginal hysterectomy. SURGEON: Andry Enrique MD ANESTHESIA: GETA. ESTIMATED BLOOD LOSS: 75 mL. COMPLICATIONS: None. FINDINGS: Enlarged fibroid uterus, normal fallopian tubes and ovaries bilaterally. SUMMARY: The patient is a 39-year-old with long history of menorrhagia, fibroid uterus, and severe chronic anemia requiring hysterectomy. The patient was counseled on risks, benefits and expectations of LAVH and voiced clear understanding to proceed. DESCRIPTION OF PROCEDURE: The patient was taken to surgery suite and placed in dorsal lithotomy position. She was prepped with Betadine solution for vaginal prep and ChloraPrep for abdominal prep. After adequate anesthesia, bivalve speculum was placed vaginally. Anterior lip of the cervix was grasped with single tooth tenaculum and Valtchev uterine manipulator was then placed. The bivalve speculum was removed. Attention was now placed on abdomen. Small transverse skin incision was made just below the umbilicus. The Veress needle was then placed through the infraumbilical incision site. The abdomen was allowed to insufflate up to 1-1/2 liters CO2 gas. The Veress needle was then removed, 5 mm trocar was placed. The scope was positioned. Uterus was visualized, enlarged with multiple fibroids. Fallopian tubes and ovaries appeared normal bilaterally. There were few pelvic sidewall adhesions as well. Two additional incisions were made in the left lower quadrant with a scalpel, in which 5 mm trocars were placed. With the aid of graspers and EnSeal device, the left round ligament was coagulated and dissected. The left utero-ovarian pedicle was coagulated and dissected. The left broad ligament was coagulated and dissected down to the uterine artery. Same process took place with right adnexa. The right fallopian tube was removed at this time, due to the certain adhesions to the left adnexal sidewall. The pedicles were all hemostatic. We then proceeded vaginally. Weighted speculum and curved Ashford placed vaginally. The Valtchev uterine manipulator and single tooth tenaculum were removed. Two Ayo clamps were placed on the anterior and posterior lip of the cervix. Lidocaine 1% with epinephrine was injected in a circumferential manner. Bovie cautery was utilized to circumscribe the cervix. The vaginal mucosa was dissected away from the lower uterine segment using moist Ray-Imtiaz. The parametrial tissue was then clamped bilaterally with curved Kannan clamps, cut and suture ligated with 2-0 Vicryl suture. The posterior cul-de-sac was then entered sharply using curved Molina scissors. Uterosacral ligaments were clamped bilaterally, cut, and suture ligated. Cardinal ligaments were clamped bilaterally and suture ligated. Two additional pedicles were taken just adjacent to the uterus, which they were clamped, cut, and suture ligated. The uterus was then bivalved and then 3 large fibroids were then enucleated from the uterus. Rest of the uterus was then removed. A modified Li's culdoplasty was performed incorporating the uterosacral ligaments bilaterally. The remainder of the vaginal cuff was reapproximated using 2-0 Vicryl suture in [id number] manner. Moist vaginal packing was placed. Attention was once again placed on abdomen. The abdomen was insufflated up to 1-1/2 liters CO2 gas. Scope was positioned. The pedicles were visualized and hemostatic. The posterior vaginal cuff was hemostatic and intact. Small amount of normal saline was left in the posterior cul-de-sac. The trocars were then removed under direct visualization. The abdomen was allowed to deflate as much as possible along with mechanical manipulation. The 3 skin incisions were reapproximated using 4-0 Vicryl suture in a subcuticular manner. A 0.5% Marcaine with epinephrine was injected at each incision site. The patient tolerated the procedure well and was taken to recovery room in stable condition. Sponge and needle count correct x 3. ANDRY ENRIQUE MD DR: DG/marco JOB#: [id number] / [id number]
[2020-07-29] MEDS ORDERED: HYDROmorphone 2 MG/ML VIAL ONE (13:52)
[2020-07-29] MEDS: HYDROmorphone 2 MG/ML VIAL IV PRN ×4 (13:57→14:28)
[2020-07-29] MEDS: GABAPENTIN 300 MG CAPSULE. PO SCH ×2 (14:00→21:42)
[2020-07-29] MEDS: PROCHLORPERAZINE 10 MG/2 ML VIAL. IV PRN ×2 (14:06→14:18)
[2020-07-29] MEDS: KETOROLAC 30 MG/ML VIAL. IV PRN ×2 (17:08→21:42)
[2020-07-29] MEDS ORDERED: ACETAMINOPHEN 325 MG TABLET. PO PRN (17:45)
[2020-07-29] MEDS ORDERED: IBUPROFEN 400 MG TABLET. PO PRN (17:45)
[2020-07-30] VITALS: BP 119/56
[2020-07-30] MEDS: KETOROLAC 30 MG/ML VIAL. IV PRN (03:53)
[2020-07-30 04:00] VITALS: BP 114/60
[2020-07-30 07:28] LABS: BASO % 0 % (0-3); EOS % 0 % (0-3); HEMATOCRIT 22.8 % (36.0-47.0); LYMPH # 2.1 x10^3/uL (1.0-4.8); LYMPH % 15 % (24-48); MEAN CORPUSCULAR HEMOGLOBIN 21 pg (25-35); MEAN CORPUSCULAR HGB CONC 30 g/dL (31-37); MEAN CORPUSCULAR VOLUME 68 fL (79-100); MONO # 0.8 x10^3/uL (0.0-1.1); MONO % 6 % (0-9); NEUT # 10.7 x10^3/uL (1.8-7.7); NEUT % 78 % (31-73); PLATELET COUNT 360 x10^3/uL (140-400); RED BLOOD COUNT 3.37 x10^6/uL (3.50-5.40); RED CELL DISTRIBUTION WIDTH 35.9 % (11.5-14.5); WHITE BLOOD COUNT 13.7 x10^3/uL (4.0-11.0)
[2020-07-30 07:33] LABS: HEMOGLOBIN 6.9 g/dL (12.0-15.5)
[2020-07-30] MEDS: GABAPENTIN 300 MG CAPSULE. PO SCH ×2 (08:28→16:35)
[2020-07-30] MEDS: FERROUS SULFATE 325 MG TABLET. PO SCH ×2 (08:29→16:36)
[2020-07-30 08:34] VITALS: BP 116/49
[2020-07-30] MEDS ORDERED: PRENATAL MULTIVITAMIN TABLET. PO SCH (09:00)
[2020-07-30] MEDS ORDERED: HYDROcodone/APAP 5/325MG 1 TAB TABLET PO PRN (11:45)
[2020-07-30] MEDS: HYDROcodone/APAP 5/325MG 1 TAB TABLET PO PRN ×2 (11:56→16:35)
[2020-07-30 12:00] VITALS: BP 112/64
--- NOTE | 2020-07-30 16:02 | PDOC ---
SURGICAL PROGRESS NOTE DATE: 07/30/20 TIME: 15:46 Subjective Pt. feeling well. Pain better controlled with Lortab. Pt. ambulating, voiding and tolerating regular diet. Vital Signs Vital Signs Date Time Temp Pulse Resp B/P (MAP) Pulse Ox O2 Delivery O2 Flow Rate FiO2 07/30/20 13:00 16 Room Air 07/30/20 12:00 98.5 79 112/64 (80) 99 98.5 07/29/20 14:00 10.0 I&O Intake and Output 07/30/20 07:00 Intake Total 2631 ml Output Total 3725 ml Balance -1094 ml Intake Oral 440 ml IV Total 1800 ml Other 391 ml Output Urine Total 3650 ml Estimated Blood Loss 75 ml PATIENT HAS A QUEEN: No General: Alert, Oriented X3, Cooperative HEENT: Atraumatic Lungs: Clear to auscultation Heart: Regular rate Abdomen: Normal bowel sounds, Soft, No masses Psych/Mental Status: Mental status NL Labs Laboratory Tests Test 07/29/20 09:32 07/29/20 10:06 07/30/20 06:55 White Blood Count 10.0 x10^3/uL (4.0-11.0) 13.7 x10^3/uL (4.0-11.0) Red Blood Count 3.93 x10^6/uL (3.50-5.40) 3.37 x10^6/uL (3.50-5.40) Hemoglobin 8.2 g/dL (12.0-15.5) 6.9 g/dL (12.0-15.5) Hematocrit 26.8 % (36.0-47.0) 22.8 % (36.0-47.0) Mean Corpuscular Volume 68 fL (79-100) 68 fL (79-100) Mean Corpuscular Hemoglobin 21 pg (25-35) 21 pg (25-35) Mean Corpuscular Hemoglobin Concent 31 g/dL (31-37) 30 g/dL (31-37) Red Cell Distribution Width 36.1 % (11.5-14.5) 35.9 % (11.5-14.5) Platelet Count 388 x10^3/uL (140-400) 360 x10^3/uL (140-400) Neutrophils (%) (Auto) 77 % (31-73) 78 % (31-73) Lymphocytes (%) (Auto) 15 % (24-48) 15 % (24-48) Monocytes (%) (Auto) 6 % (0-9) 6 % (0-9) Eosinophils (%) (Auto) 1 % (0-3) 0 % (0-3) Basophils (%) (Auto) 1 % (0-3) 0 % (0-3) Neutrophils # (Auto) 7.7 x10^3/uL (1.8-7.7) 10.7 x10^3/uL (1.8-7.7) Lymphocytes # (Auto) 1.5 x10^3/uL (1.0-4.8) 2.1 x10^3/uL (1.0-4.8) Monocytes # (Auto) 0.6 x10^3/uL (0.0-1.1) 0.8 x10^3/uL (0.0-1.1) Eosinophils # (Auto) 0.1 x10^3/uL (0.0-0.7) 0.0 x10^3/uL (0.0-0.7) Basophils # (Auto) 0.1 x10^3/uL (0.0-0.2) 0.0 x10^3/uL (0.0-0.2) Platelet Estimate Adequate (ADEQUATE) Polychromasia Occasional Hypochromasia Present Anisocytosis Mod Microcytosis Mod Bedside Urine HCG, Qualitative Hcg negative (Negative) Laboratory Tests Test 07/30/20 06:55 White Blood Count 13.7 x10^3/uL (4.0-11.0) Red Blood Count 3.37 x10^6/uL (3.50-5.40) Hemoglobin 6.9 g/dL (12.0-15.5) Hematocrit 22.8 % (36.0-47.0) Mean Corpuscular Volume 68 fL (79-100) Mean Corpuscular Hemoglobin 21 pg (25-35) Mean Corpuscular Hemoglobin Concent 30 g/dL (31-37) Red Cell Distribution Width 35.9 % (11.5-14.5) Platelet Count 360 x10^3/uL (140-400) Neutrophils (%) (Auto) 78 % (31-73) Lymphocytes (%) (Auto) 15 % (24-48) Monocytes (%) (Auto) 6 % (0-9) Eosinophils (%) (Auto) 0 % (0-3) Basophils (%) (Auto) 0 % (0-3) Neutrophils # (Auto) 10.7 x10^3/uL (1.8-7.7) Lymphocytes # (Auto) 2.1 x10^3/uL (1.0-4.8) Monocytes # (Auto) 0.8 x10^3/uL (0.0-1.1) Eosinophils # (Auto) 0.0 x10^3/uL (0.0-0.7) Basophils # (Auto) 0.0 x10^3/uL (0.0-0.2) Assessment/Plan A: POD#1 s/p LAVH P: D/c home. Justicifation of Admission Dx: Justifications for Admission: Justification of Admission Dx: Yes ANDRY REGAN Jr, MD Jul 30, 2020 16:02
[2020-07-30] MEDS ORDERED: HYDR-2761 PO (16:06)
[2020-07-30] MEDS ORDERED: DOCU-109 PO (16:06)
[2020-07-30] MEDS ORDERED: FERR325T72 PO (16:06)
[2020-07-30] MEDS ORDERED: IBUP-1027 PO (16:06)
--- NOTE | 2020-07-30 16:06 | DISCH ---
DISCHARGE INSTRUCTIONS Condition on Discharge Condition on Discharge: Stable Activity After Discharge Activity Instructions for Disc: Activity as tolerated Lifting Instructions after Dis: No heavy lifting Driving Instructions after Dis: No driving for 2 weeks Diet after Discharge Diet after Discharge: Regular Diet Texture: Regular Liquid Texture: Thin Liquid Swallowing Supervision: None needed Contacting the DRRigo after DC Call your doctor for: Concerns you may have Follow-Up Follow up with: Dr. Enrique in 2 wks Treatment/Equipment after DC Adaptive Equipment Issued: None ANDRY ENRIQUE Jr, MD Jul 30, 2020 16:06
[2020-07-30 17:00] VITALS: BP 118/62
--- NOTE | 2020-07-30 17:34 | NUR ---
Discharge and follow up instructions reviewed and given to pt along with 4 Rx. Pt verbalized understanding and denied any questions at this time. Pt taken out of the hospital per W/C with her friends by her side.
--- NOTE | 2020-08-02 15:08 | PATHOLOGY ---
[facility] Accession Number: [id number] . 01 Material submitted: . uterus - UTERUS, CERVIX RIGHT FALLOPIAN TUBE . 01 Clinical history: . UTERINE FIBROIDS, MENORRHAGIA . 02 Diagnosis: Uterus with attached and separate segments of fallopian tube and separate segments of myometrial tissue, laparoscopic assisted vaginal hysterectomy and right salpingectomy: - Leiomyomas, uterine corpus, submucosal/intramural/subserosal, multiple, the largest measuring 3.8 cm in greatest dimension, showing focal degenerative changes, acute inflammation, and hemorrhage (uterine weight 244 grams). - Mild chronic cervicitis with focal squamous metaplasia. - Nabothian cysts, cervix, multiple. - Weakly proliferative endometrium showing low-grade chronic endometritis. - Adenomyosis, uterine corpus, subbasal. - Uterine serosal adhesions, focal. - Paratubal cysts and cystic [place]ard rests. (SAMANTHAM:jon; 08/02/2020) [facility] 08/02/2020 1447 Local . 02 Comment: There is no atypia or evidence of malignancy. (SAMANTHAM:jon; 08/02/2020) . 02 Electronically signed: . Antolin Fraga MD, Pathologist NPI- [id number] . 01 Gross description: . The specimen is received in formalin, labeled "Nilo, Lona, uterus and cervix right fallopian tube" and consists of a 244 g disrupted and multinodular uterus with attached cervix measuring 10.3 x 8.9 x 5.8 cm. Loosely attached is the right fimbriated fallopian tube measuring 2.1 x 0.5 cm. Present at the bottom the container is a second fallopian tube segment measuring 2.5 cm in length and 0.5 cm in diameter. 3 white villa nodules are present measuring between 2.8 and 3.2 cm. The uterine serosa is pink-villa smooth shiny with focal adhesions. The cervical mucosa is villa with focal hemorrhage. The endocervical canal is corrugated measuring 4.5 cm in length. The endometrial cavity is distorted measuring approximately 5.0 cm in length and 2.5 cm in width lined by a pink-villa endometrium with a polypoid focus of the posterior aspect measuring approximately 1.0 x 1.0 cm. The distortion is due to submucosal nodules. Multiple nodules are present measuring between 0.4 cm and 3.8 cm with the largest showing extensive hemorrhage. The myometrium is pink-villa measuring up to 3.5 cm. Both fallopian tube segments reveal a central well-defined lumen. [employer] sections are submitted as follows: . A1: Anterior cervix A2: Posterior cervix A3: Anterior endomyometrium A4-A5: Posterior endomyometrium to include entire polypoid focus A6-A7: Nodules A8-A9: Nodule with extensive hemorrhage A10: Right fallopian tube, entire A11: Detached segment of fallopian tube, entire (SDY; 07/30/2020) SYU/SYU 08/02/2020 1447 Local . 02 Pathologist provided ICD-10: D25.0, D25.1, D25.2, N72, N88.8, N71.1, N80.0, N83.8 . 02 CPT . 496957 Specimen Comment: A courtesy copy of this report has been sent to [phone] Specimen Comment: Report sent to Performed at: 01 [facility] [address], [place], [place] [id number] MD Aly Longoria MD Phone: [phone] Performed at: 02 [facility] [address] [place], [place] [id number] MD Antolin Fraga MD Phone: [phone]
== END 2020-07-30 17:35 | disposition home or self-care (01) ==
LOC: SURG 09:24 → OBSVTOIN 13:34 → 3 NORTH 13:34 → INTOOBSV 13:34 → UNDODISIN 07-30 10:05
PROVIDERS: ADMIT Obstetrics & Gynecology; ATTEND Obstetrics & Gynecology
DX: N92.0 Excessive and frequent menstruation with regular cycle (principal); D64.9 Anemia, unspecified; D25.9 Leiomyoma of uterus, unspecified
CPT/HCPCS: 36415; 58550; 81025; 85025; 86850; 86900; 86901; 96374; 96375; 96376; A7015; G0378; G0379; J0690; J0780; J1100; J1170; J1885; J2250; J2405; J2704; J2710; J3010; J3490; J7030; J7120

== ENCOUNTER 2021-08-26 12:23 | Emergency (ER) | payer BC, OTHER ==
[~2021-08-26] VITALS: Ht 152.4 cm; Wt 64.3 kg
[~2021-08-26 12:23] MED LIST changes: -DEXAMETHASONE SOD PHOS 4 MG/ML VIAL ONE; +DOCU-109 PO; +FERR325T72 PO; +HYDR-2761 PO; +IBUP-1027 PO; -IV RINGERS,LACTATED 1000ML 1,000 ML IV SCH; -LIDOCAINE 2% PF 5 ML VIAL. ONE; -MIDAZOLAM HCL/PF 2 MG/2 ML VIAL. ONE; -ONDANSETRON PF 4 MG/2 ML VIAL. IV PRN; -ONDANSETRON PF 4 MG/2 ML VIAL. ONE; -PROPOFOL 10 MG/ML (20ML) VIAL. IV ONE; -ROCURONIUM 50 MG/5 ML VIAL. ONE; -ceFAZolin SODIUM IV Push 1 GM VIAL. IVP ONE; -fentaNYL PF VIAL 100 MCG/2 ML VIAL IV PRN; -fentaNYL PF VIAL 100 MCG/2 ML VIAL ONE
[2021-08-26] MEDS ORDERED: MORPHINE SULFATE 10 MG/ML VIAL. IVP ONE (13:45)
[2021-08-26] MEDS ORDERED: diphenhydrAMINE 50 MG/ML VIAL IVP ONE (13:45)
[2021-08-26] MEDS ORDERED: METOCLOPRAMIDE HCL 10 MG/2 ML VIAL. IVP ONE (13:45)
[2021-08-26] MEDS ORDERED: PROCHLORPERAZINE 10 MG/2 ML VIAL. IV ONE (13:45)
[2021-08-26] MEDS ORDERED: IV NORMAL SALINE 1000ML BAG 1,000 ML IV ONE (13:45)
[2021-08-26 14:00] LABS: BASO # 0.1 x10^3/uL (0.0-0.2); BASO % 1 % (0-3); EOS # 0.1 x10^3/uL (0.0-0.7); EOS % 1 % (0-3); HEMATOCRIT 41.6 % (36.0-47.0); LYMPH # 2.5 x10^3/uL (1.0-4.8); LYMPH % 34 % (24-48); MEAN CORPUSCULAR HEMOGLOBIN 29 pg (25-35); MEAN CORPUSCULAR HGB CONC 34 g/dL (31-37); MEAN CORPUSCULAR VOLUME 86 fL (79-100); MONO # 0.7 x10^3/uL (0.0-1.1); MONO % 10 % (0-9); NEUT % 54 % (31-73); PLATELET COUNT 318 x10^3/uL (140-400); RED BLOOD COUNT 4.84 x10^6/uL (3.50-5.40); RED CELL DISTRIBUTION WIDTH 13.4 % (11.5-14.5); WHITE BLOOD COUNT 7.3 x10^3/uL (4.0-11.0)
[2021-08-26] MEDS ORDERED: MORPHINE SULFATE 4 MG/ML INJ. IVP ONE (14:00)
[2021-08-26 14:11] LABS: CALCIUM 9.1 mg/dL (8.5-10.1); CREATININE 0.5 mg/dL (0.6-1.0); GFR 165.3; POTASSIUM 3.9 mmol/L (3.5-5.1)
[2021-08-26 14:17] LABS: ALBUMIN/GLOBULIN RATIO 1.1 (1.0-1.7); TOTAL BILIRUBIN 0.2 mg/dL (0.2-1.0); TOTAL PROTEIN 7.6 g/dL (6.4-8.2)
[2021-08-26 14:25] LABS: PREG TEST PT QUAL NEGATIVE (NEG)
--- NOTE | 2021-08-26 14:59 | RAD ---
CT HEAD WITHOUT CONTRAST 08/26/2021 2:17 PM Indication: Reason: headache / Comparison study: CT head without contrast October 23, 2017 Procedure: Multidetector CT imaging of the head was performed without the administration of contrast. Findings: There is no evidence of acute intracranial hemorrhage. There is no evidence of acute territ orial infarction. Please note that CT is limited for evaluation of acute ischemia. No mass effect or midline shift is identified . The ventricles and basilar cisterns have an appropriate appearance. No abnormal extra-axial fluid collections are seen. No acute osseous changes are identified. Impression: No evidence of acute intracranial abnormality CT DOSING PQRS STATEMENT: One or more of the following individualized dose reduction techniques were utilized for this examinat ion: 1. Automated exposure control 2. Adjustment of the mA and/or kV according to patient size 3. Use of iterative reconstruction technique Electronically signed by: Tim Molina MD (08/26/2021 2:56 PM) [id number]
[2021-08-26] MEDS ORDERED: KETOROLAC 15 MG/ML VIAL. IVP ONE (16:00)
--- NOTE | 2021-08-26 16:03 | PHYS DOC ---
Past Medical History Past Medical History: No Pertinent History, Anxiety, Migraines, Other Additional Past Medical Histor: back spasms Past Surgical History: Hysterectomy, Tubal ligation Smoking Status: Current Every Day Smoker Alcohol Use: None Drug Use: None General Adult EDM: Chief Complaint: HEADACHE HPI: HPI: 40-year-old female past medical history of migraine headaches, iron deficiency anemia and menorrhagia, presents to the ED with complaints of 5 days of gradual onset headache that started around the forehead and goes to the back of her neck, progressively worsening. Patient reports no relief with Excedrin migraine headache, Aleve, Tylenol ibuprofen. Reports associated photophobia. Denies any blunt trauma or history of aneurysms. Has no primary care physician or neurologist who manages her migraine headaches. Review of Systems: Review of Systems: Constitutional: Denies fever or chills. [] Eyes: Denies change in visual acuity. [] HENT: Denies nasal congestion or sore throat. [] Respiratory: Denies cough or shortness of breath. [] Cardiovascular: Denies chest pain or edema. [] GI: Denies nausea or vomiting : Denies dysuria or hematuria Musculoskeletal: Denies back pain or joint pain. [] Integument: Denies rash or diaphoresis Neurologic: Denies neck stiffness, focal weakness or sensory changes. [] Endocrine: Denies polyuria or polydipsia. [] Lymphatic: Denies swollen glands. [] Psychiatric: Denies depression or anxiety. [] Heart Score: C/O Chest Pain: No Risk Factors: Risk Factors: DM, Current or recent (<one month) smoker, HTN, HLP, family history of CAD, obesity. Risk Scores: Score 0 - 3: 2.5% MACE over next 6 weeks - Discharge Home Score 4 - 6: 20.3% MACE over next 6 weeks - Admit for Clinical Observation Score 7 - 10: 72.7% MACE over next 6 weeks - Early Invasive Strategies Current Medications: Current Medications Medications (Trade) Dose Ordered Sig/Maged Start Time Stop Time Status Last Admin Dose Admin Diphenhydramine HCl (Benadryl) 25 mg 1X ONCE 08/26/21 13:45 08/26/21 13:46 DC 08/26/21 14:14 25 MG Metoclopramide HCl (Reglan Vial) 10 mg 1X ONCE 08/26/21 13:45 08/26/21 13:46 DC 08/26/21 14:14 10 MG Morphine Sulfate (Morphine Sulfate) 4 mg 1X ONCE 08/26/21 14:00 08/26/21 14:01 DC 08/26/21 14:16 4 MG Prochlorperazine Edisylate (Compazine) 10 mg 1X ONCE 08/26/21 13:45 08/26/21 13:46 DC 08/26/21 14:16 10 MG Sodium Chloride 1,000 ml @ 1,000 mls/hr 1X ONCE 08/26/21 13:45 08/26/21 14:44 DC 08/26/21 14:12 1,000 MLS/HR Allergies: Allergies: Allergies Coded Allergies Type Severity Reaction Last Updated Verified oxycodone Adverse Reaction Severe Nausea 07/29/20 Yes Physical Exam: PE: Constitutional: Well developed, well nourished, no acute distress, non-toxic appearance. HENT: Normocephalic, atraumatic, Eyes: PERRLA, EOMI, conjunctiva normal, no discharge. Neck: Normal range of motion, supple, no nuchal rigidity or menigismus Cardiovascular: S1/2 present, regular rhythm Lungs & Thorax: Speaking in full sentences, bilateral equal chest rise, no tachypnea or increased work of breathing Abdomen: soft, no tenderness, Skin: Warm, dry, no erythema, no rash. [] Extremities: No tenderness, no cyanosis, Neurologic: Alert and oriented X 3, normal motor function, normal sensory function, no focal deficits noted. [] Psychologic: Affect normal, judgement normal, mood normal. [] Current Patient Data: Labs: Laboratory Tests Test 08/26/21 12:50 White Blood Count 7.3 x10^3/uL (4.0-11.0) Red Blood Count 4.84 x10^6/uL (3.50-5.40) Hemoglobin 14.0 g/dL (12.0-15.5) Hematocrit 41.6 % (36.0-47.0) Mean Corpuscular Volume 86 fL (79-100) Mean Corpuscular Hemoglobin 29 pg (25-35) Mean Corpuscular Hemoglobin Concent 34 g/dL (31-37) Red Cell Distribution Width 13.4 % (11.5-14.5) Platelet Count 318 x10^3/uL (140-400) Neutrophils (%) (Auto) 54 % (31-73) Lymphocytes (%) (Auto) 34 % (24-48) Monocytes (%) (Auto) 10 % (0-9) H Eosinophils (%) (Auto) 1 % (0-3) Basophils (%) (Auto) 1 % (0-3) Neutrophils # (Auto) 4.0 x10^3/uL (1.8-7.7) Lymphocytes # (Auto) 2.5 x10^3/uL (1.0-4.8) Monocytes # (Auto) 0.7 x10^3/uL (0.0-1.1) Eosinophils # (Auto) 0.1 x10^3/uL (0.0-0.7) Basophils # (Auto) 0.1 x10^3/uL (0.0-0.2) Sodium Level 139 mmol/L (136-145) Potassium Level 3.9 mmol/L (3.5-5.1) Chloride Level 103 mmol/L (98-107) Carbon Dioxide Level 30 mmol/L (21-32) Anion Gap 6 (6-14) Blood Urea Nitrogen 6 mg/dL (7-20) L Creatinine 0.5 mg/dL (0.6-1.0) L Estimated GFR (Cockcroft-Gault) 165.3 BUN/Creatinine Ratio 12 (6-20) Glucose Level 90 mg/dL (70-99) Calcium Level 9.1 mg/dL (8.5-10.1) Total Bilirubin 0.2 mg/dL (0.2-1.0) Aspartate Amino Transferase (AST) 15 U/L (15-37) Alanine Aminotransferase (ALT) 38 U/L (14-59) Alkaline Phosphatase 71 U/L (46-116) Total Protein 7.6 g/dL (6.4-8.2) Albumin 4.0 g/dL (3.4-5.0) Albumin/Globulin Ratio 1.1 (1.0-1.7) Serum Test, Qualitative Negative (NEG) Laboratory Tests 08/26/21 12:50 Laboratory Tests 08/26/21 12:50 Vital Signs: Vital Signs Date Time Temp Pulse Resp B/P (MAP) Pulse Ox O2 Delivery O2 Flow Rate FiO2 08/26/21 13:54 70 16 120/77 (91) 100 Room Air 08/26/21 13:27 98.2 98.2 EKG: EKG: [] Radiology/Procedures: Radiology/Procedures: IMAGING REPORT Signed PATIENT: FORTUNATO BANKS ACCOUNT: [id number] : 1980 LOCATION: ER AGE: 40 SEX: F EXAM STATUS: REG ER ORD. PHYSICIAN: HIWOT DAN DO REASON: headache PROCEDURE: CT HEAD WO CONTRAST CT HEAD WITHOUT CONTRAST 08/26/2021 2:17 PM Indication: Reason: headache / Comparison study: CT head without contrast October 23, 2017 Procedure: Multidetector CT imaging of the head was performed without the administration of contrast. Findings: There is no evidence of acute intracranial hemorrhage. There is no evidence of acute territorial infarction. Please note that CT is limited for evaluation of acute ischemia. No mass effect or midline shift is identified . The ventricles and basilar cisterns have an appropriate appearance. No abnormal extra-axial fluid collections are seen. No acute osseous changes are identified. Impression: No evidence of acute intracranial abnormality CT DOSING PQRS STATEMENT: One or more of the following individualized dose reduction techniques were utilized for this examination: 1. Automated exposure control 2. Adjustment of the mA and/or kV according to patient size 3. Use of iterative reconstruction technique Electronically signed by: Tim Cain MD (08/26/2021 2:56 PM) [id number] DICTATED and SIGNED BY: TIM CAIN MD DATE: 08/26/21 [id number] Course & Med Decision Making: Course & Med Decision Making Pertinent Labs and Imaging studies reviewed. (See chart for details) Concern for acute on chronic migraine headaches. Last headache was approximately 4 months ago. On reevaluation patient sleeping comfortably with complete reso lution of symptoms, steady gait and no neurologic abnormalities. Denies any blunt trauma to the head. CT unremarkable for any acute pathology. Will discharge home with strict ED return precautions were given for severe headache, neurologic deficits, blurry vision, fever or neck stiffness. Encouraged urgent outpatient follow-up with PMD and neurology for definitive management of chronic migraines. Life-threatening processes were considered but are low suspicion at this time, given history, physical exam and ED workup. Pt was educated on all prescription medications and adverse effects. All patient's questions were answered and pt was stable at time of discharge. Life/limb-threatening differential includes but is not limited to, meningitis, encephalitis, intracranial hemorrhage, obstructive hydrocephaly, CVA, carbon monoxide poisoning, cerebral or cavernous venous thrombosis, hypertensive emergency, preeclampsia, giant cell arteritis, glaucoma, carotid or vertebral artery dissection, superior vena cava syndrome, infection, optic neuritis, or space-occupying lesions. I have spoken with the patient and/or caregivers. I explained the patient's condition, diagnoses and treatment plan based on the information available to me at this time. I have answered the patient and/or caregiver's questions and addressed any concerns. The patient and/or caregivers have a good understanding of patient's diagnosis, condition and treatment plan as can be expected at this point. Vital signs have been stable. Patient's condition is stable and appropriate for discharge from the emergency department. Patient will pursue further outpatient evaluation with primary care physician or other designated or consulting physician as outlined in the discharge instructions. The patient and/or caregivers are agreeable to this plan of care and follow-up instructions have been explained in detail. The patient and/or caregivers have received these instructions in written form and have expressed an understanding of the discharge instructions. The patient and/or caregivers are aware that any significant change of condition or worsening of symptoms should prompt immediate return to this or the closest emergency department or call to 911. Emir Disclaimer: Emir Disclaimer: This electronic medical record was generated, in whole or in part, using a voice recognition dictation system. Departure Departure Impression: Primary Impression: Migraine headache Disposition: HOME / SELF CARE / HOMELESS Condition: STABLE Referrals: NO PCP (PCP) Follow-up with your primary care physician in 24 to 48 hours OR FOLLOW UP WITH FAMILY MEDICINE: [address] [place] [address] Patient Instructions: General Headache Without Cause, Migraine Headache Additional Instructions: FOLLOW UP WITH NEUROLOGY: FOR DEFINITIVE MANAGEMENT of migraine headaches [facility] [address], [address] [place] [address] EMERGENCY DEPARTMENT GENERAL DISCHARGE INSTRUCTIONS Thank you for coming to [facility] Emergency Department (ED) today and trusting us with you care. We trust that you had a positive experience in our Emergency Department. If you wish to speak to the department management, you may call the Director at [phone]. YOUR FOLLOW UP INSTRUCTIONS ARE FOLLOWS: 1. Do you have a private Doctor? If you do not have a private doctor, please ask for a resource list of physicians or clinics that may be able to assist you with follow up care. 2. The Emergency Physicain has interpreted your x-rays. The X-Ray specialist will also review them. If there is a change in the findings, you will be notified in 48 hours when at all possible. 3. A lab test or culture has been done, your results will be reviewed and you will be notified if you need a change in treatment. ADDITIONAL INSTRUCTIONS AND INFORMATION: 1. Your care today has been supervised by a physician who is specially trained in emergency care. Many problems require more than one evaluation for a complete diagnosis and treatment. We recommend that you schedule your follow up appointment as recommended to ensure complete treatment of you illness or injury. If you are unable to obtain follow up care and continue to have a problem, or if your condition worsens, we recommend that you return to the ED. 2. We are not able to safely determine your condition over the phone nor are we able to give sound medical advice over the phone. For these safety reasons, if you call for medical advice we will ask you to come to the ED for further evaluation. 3. If you have any questions regarding these discharge instructions please call the ED at [phone]. SAFETY INFORMATION: In the interest of safety, wellness, and injury prevention; we encourage you to wear your sealbelt, if you smoke; quite smoking, and we encourage family to use a protective helmet for bicycling and other sporting events that present an increased risk for head injury. IF YOUR SYMPTOMS WORSEN OR NEW SYMPTOMS DEVELOP, OR YOU HAVE CONCERNS ABOUT YOUR CONDITION; OR IF YOUR CONDITION WORSENS WHILE YOU ARE WAITING FOR YOUR FOLLOW UP APPOINTMENT; EITHER CONTACT YOUR PRIMARY CARE DOCTOR, THE PHYSICIAN WHOSE NAME AND NUMBER YOU WERE GIVEN, OR RETURN TO THE ED IMMEDIATELY. HIWOT DAN DO Aug 26, 2021 16:03
[2021-08-26 16:15] VITALS: BP 132/75
== END 2021-08-26 16:16 | disposition home or self-care (01) ==
LOC: ER 12:23
DX: G43.909 Migraine, unspecified, not intractable, without status migrainosus (principal); F17.200 Nicotine dependence, unspecified, uncomplicated; Z88.5 Allergy status to narcotic agent
CPT/HCPCS: 36415; 70450; 80053; 84703; 85025; 96361; 96374; 96375; 99285; J0780; J1200; J1885; J2270; J2765; J7030

== ENCOUNTER 2021-11-09 12:19 | Emergency (ER) | payer BC ==
[~2021-11-09] VITALS: Ht 152.4 cm; Wt 62.1 kg
[2021-11-09 13:40] VITALS: BP 126/63
--- NOTE | 2021-11-09 13:51 | ED.ADGEN ---
Past Medical History Past Medical History: No Pertinent History, Anxiety, Migraines, Other Additional Past Medical Histor: back spasms Past Surgical History: Hysterectomy, Tubal ligation Smoking Status: Current Some Day Smoker Alcohol Use: Occasionally Drug Use: None General Adult EDM: Chief Complaint: COUGH HPI: HPI: Patient is a 40 year old female coming in for complaints of cold. She states she has had a cough, congestion, nausea and upset stomach, body aches and chills. Denies any fever, vomiting or diarrhea. Patient has had both of her COVID vaccines within the last 6 months, does not have a influenza vaccine. Review of Systems: Review of Systems: All other systems within normal limits except for as noted in the HPI Allergies: Allergies: Allergies Coded Allergies Type Severity Reaction Last Updated Verified oxycodone Adverse Reaction Severe Nausea 07/29/20 Yes Physical Exam: PE: Constitutional: Well developed, well nourished, no acute distress, non-toxic appearance. [] HENT: Normocephalic, atraumatic, bilateral external ears normal, nose normal. [] Eyes: PERRLA, conjunctiva normal, no discharge. [] Neck: No rigidity, supple, no stridor. [] Cardiovascular: Regular rate and rhythm, brisk cap refill [] Lungs & Thorax: Non labored symmetric respirations, no tachypnea or respiratory distress. Lungs clear to auscultation [] Abdomen: Soft, nondistended. Skin: Warm, dry, no erythema, no rash. [] Back: Unremarkable Extremities: No deformities, range of motion grossly intact, no lower extremity edema [] Neurologic: Alert and oriented X 3, no focal deficits noted. [] Psychologic: Affect normal, judgement normal, mood normal. [] Current Patient Data: Labs: Laboratory Tests Test 11/09/21 13:59 11/09/21 14:34 Influenza Type A Antigen Negative (NEGATIVE) Influenza Type B Antigen Negative (NEGATIVE) SARS-CoV-2 Antigen (Rapid) Positive (NEGATIVE) *A Vital Signs: Vital Signs Date Time Temp Pulse Resp B/P (MAP) Pulse Ox O2 Delivery O2 Flow Rate FiO2 11/09/21 13:40 98.7 74 16 126/63 (84) 100 Room Air 98.7 EKG: EKG: [] Heart Score: C/O Chest Pain: No Risk Factors: Risk Factors: DM, Current or recent (<one month) smoker, HTN, HLP, family history of CAD, obesity. Risk Scores: Score 0 - 3: 2.5% MACE over next 6 weeks - Discharge Home Score 4 - 6: 20.3% MACE over next 6 weeks - Admit for Clinical Observation Score 7 - 10: 72.7% MACE over next 6 weeks - Early Invasive Strategies Radiology/Procedures: Radiology/Procedures: [facility] [address] [place] [address] IMAGING REPORT Signed PATIENT: FORTUNATO BANKS ACCOUNT: [id number] : 1980 LOCATION: ER AGE: 40 SEX: F EXAM STATUS: REG ER ORD. PHYSICIAN: CAMILA SANTIZO MD REASON: cough PROCEDURE: CHEST PA & LATERAL XR CHEST 2V History: Cough. Comparison: Chest x-ray 08/19/2018. CT abdomen pelvis 11/14/2010 Technique: PA and lateral chest radiographs. Findings: The lungs are adequately and symmectrically inflated. No airspace consolidation, pleural effusion or pneumothorax. Calcified left lower lobe granuloma. The cardiomediastinal silhoutte and pulmonary vasculature are within normal limits. Soft tissues and osseous structures are unremarkable. Impression: 1. No acute cardiopulmonary process. Electronically signed by: Brian Damon MD (11/09/2021 2:36 PM) [id number] DICTATED and SIGNED BY: BRIAN DAMON MD DATE: 11/09/21 [id number] [] Course & Med Decision Making: Course & Med Decision Making Pertinent Labs and Imaging studies reviewed. (See chart for details) [] Dragon Disclaimer: Dragon Disclaimer: This electronic medical record was generated, in whole or in part, using a voice recognition dictation system. Departure Departure Impression: Primary Impression: COVID Disposition: HOME / SELF CARE / HOMELESS Condition: STABLE Referrals: NO PCP (PCP) Additional Instructions: You have been tested for or diagnosed with COVID-19. It is an infection caused by a new type of coronavirus. COVID-19 will cause cold-like or mild flu symptoms in most. It can cause more severe symptoms like problems breathing in some. There is no treatment for COVID-19. The body will clear the infection over time. Self-care will help to ease discomfort. Steps to Take: Self-Care Rest as needed. Healthy habits may help you feel better. Steps include: Choose healthy foods including fruits and vegetables. Drink water throughout the day. Get plenty of sleep each night. If you smoke, try to quit. It may ease breathing. Avoid alcohol. Keep Others Healthy The virus can spread to others. Droplets are released every time you sneeze or cough. The droplets can get into the mouth, nose, or eyes of people near you and lead to infection. To lower the chances of spreading COVID-19 to others: Stay at home until your doctor has said it is safe to leave. If you tested positive this will mean staying isolated until both of the following are true: At least 7 days have passed since the start of illness. You are free of fever for at least 72 hours without the use of medicine. During this time: - Avoid public areas, events, or transportation. Do not return to work or school until your doctor has said it is safe to do so. - Call ahead if you need to go to a medical center. Let them know you may have COVID-19. It will help them guide you where to go. They may also ask you to wear a facemask when you come to the office. - If you call for emergency medical services, let them know you may have COVID- 19. While at home: - Try to avoid close contact with others. Stay about 6 feet away. - If possible, spend most of your time in a separate room from others. - Use a face mask if you will be in close contact with others such as sharing a room or vehicle. - Have someone wipe down common surfaces in the home. Use household photographic engineer every day on areas like doorknobs, counters, or sinks. - Cough or sneeze into a tissue. Throw the tissue away right after use. If a tissue is not available, cough or sneeze into your elbow. - Wash your hands often. Wash them after sneezing or coughing. Use soap and water and wash for at least 20 seconds. Alcohol based hand septic cleaner can be used if soap and water is not available. - Do not prepare food for others. Avoid sharing personal items like forks, spoons, or toothbrushes. - Avoid close contact with pets while you are sick. There is no evidence of the virus passing to pets. This is a safety step until more is known about this virus. Isolation can be frustrating. Social interaction can help. Keep in touch with friends and family through phone and tech options. You can still interact with others in your home, just keep a safe distance of about 6 feet. Follow-up: Your doctors office will check in with you to see if there are any changes in your health. You may be asked to keep track of symptoms to share with them. They will also let you know when you are clear to be in public again. Problems to Look Out For: Contact your doctor if your recovery is not going as you expect. Get emergency care if you have problems such as: - Trouble breathing - Nonstop chest pain or pressure - Changes in awareness, confusion, or problems waking - Lips or face have bluish color - Worsening of symptoms If you think you have an emergency, call for emergency medical services right away. As taken from [facility] CAMILA SANTIZO MD Nov 09, 2021 13:51
[2021-11-09 14:22] LABS: INFLUENZA A PATIENT NEGATIVE (NEGATIVE); INFLUENZA B PATIENT NEGATIVE (NEGATIVE)
--- NOTE | 2021-11-09 14:38 | RAD ---
XR CHEST 2V History: Cough. Comparison: Chest x-ray 08/19/2018. CT abdomen pelvis 11/14/2010 Technique: PA and lateral chest radiographs. Findings: The lungs are adequately and symmectrically inflated. No airspace consolidation, pleural effusion or pneumothorax. Calcified left lower lobe granuloma. The cardiomediastinal silhoutte and pulmonary vasc ulature are within normal limits. Soft tissues and osseous structures are unremarkable. Impression: 1. No acute cardiopulmonary process. Electronically signed by: Tono Damon MD (11/09/2021 2:36 PM) [id number]
== END 2021-11-09 15:07 | disposition home or self-care (01) ==
LOC: ER 12:19
DX: U07.1 COVID-19 (principal); G43.909 Migraine, unspecified, not intractable, without status migrainosus; F17.200 Nicotine dependence, unspecified, uncomplicated; Z88.5 Allergy status to narcotic agent
CPT/HCPCS: 71046; 87426; 87804; 99284